=== PATIENT | female | born 1965 | race Hispanic/Latino ===

== ENCOUNTER 2016-10-16 14:53 | Emergency (ER) | payer MEDICAID, OTHER ==
[2016-10-16 14:54] VITALS: BMI 34.3
[2016-10-16 14:59] VITALS: BP 162/100; PULSE 92; RESP 20; TEMP 98.1; O2SAT 96
[2016-10-16] MEDS ORDERED: Albuterol-Ipratrop 3 mg / 0.5 (3 ml) UD IH STA (15:13)
[2016-10-16] MEDS ORDERED: Albuterol-Ipratrop 3 mg / 0.5 (3 ml) UD ONE (15:18)
--- NOTE | 2016-10-16 15:35 | RAD ---
HISTORY: Shortness of breath COMPARISON: 05/05/2016 TECHNIQUE: Chest PA and lateral FINDINGS: LUNGS: The lungs are well inflated and clear. There is a linear scarring in the left lower lobe. PLEURA: No significant pleural effusion identified. No pneumothorax apparent. CARDIOVASCULAR: The heart is normal in size. OSSEOUS STRUCTURES: No significant abnormalities. VISUALIZED UPPER ABDOMEN: Normal. OTHER FINDINGS: None. IMPRESSION: No active pulmonary disease.
--- NOTE | 2016-10-16 15:39 | C.PDOC ---
History Of Present Illness 51 year old female presents to the ED with complaints of cough and congestion for two weeks. Patient states she feels the need to release sputum from her throat but is unable to. She denies taking any medication, chest pain, shortness of breath or fever. Time Seen by Provider: 10/16/16 15:09 Chief Complaint (Nursing): Cough, Cold, Congestion History Per: Patient History/Exam Limitations: no limitations Onset/Duration Of Symptoms: Persistent (2 weeks ) Sick Contacts (Context): None Associated Symptoms: Cough. denies: Fever, Chills, Vomiting, Diarrhea Recent travel outside of the [place]: No Past Medical History Reviewed: Historical Data, Nursing Documentation, Vital Signs Vital Signs: Last Vital Signs Temp 98.1 F 10/16/16 14:56 Pulse 92 H 10/16/16 14:56 Resp 20 10/16/16 15:43 BP 162/100 H 10/16/16 14:56 Pulse Ox 96 10/16/16 17:00 - Medical History PMH: Anxiety, Gastritis, Gall Bladder Disease, HTN, Hypercholesterolemia, Hyperlipidemia, Hypothyroidism, Malignancy (ovarian) Surgical History: Cholecystectomy, Endoscopy (ESOPHAGEAL DILATION) - [facility] Procedures COLONOSCOPY (11/25/13) ESOPHAGEAL DILATION (06/04/14) ESOPHAGOGASTRODUODENOSCOPY [EGD] W/CLOSED BIOPSY (06/04/14) Family History: States: Unknown Family Hx, Diabetes - Social History Hx Tobacco Use: No Hx Alcohol Use: No Hx Substance Use: No - Immunization History Hx Tetanus Toxoid Vaccination: No Hx Influenza Vaccination: No Hx Pneumococcal Vaccination: No Review Of Systems Constitutional: Negative for: Fever, Chills, Sweats Cardiovascular: Negative for: Chest Pain, Palpitations Respiratory: Positive for: Cough, Other (congestion ). Negative for: Shortness of Breath Gastrointestinal: Negative for: Nausea, Vomiting, Abdominal Pain, Diarrhea Neurological: Negative for: Headache Physical Exam - Physical Exam Appears: Non-toxic, No Acute Distress Skin: Warm, Dry Head: Atraumatic Ear(s): Bilateral: Normal Nose: Normal, No Discharge Oral Mucosa: Moist Throat: Normal, No Erythema, No Exudate Neck: Supple Chest: Symmetrical, No Deformity Cardiovascular: Rhythm Regular Respiratory: No Rales, Rhonchi (scattered rhonci bilaterally ) Extremity: Normal ROM, No Tenderness Neurological/Psych: Oriented x3 ED Course And Treatment O2 Sat by Pulse Oximetry: 96 (room air ) Medical Decision Making Medical Decision Making: Impression: cough and congestion Plan: * Duoneb * CXR Progress: CXR show no acute disease. Zithromax PO was ordered Patient remained afebrile alert and oriented with stable vital signs during ER evaluation. Discussed results with patient, and copy of report was provided. On re- examination, patient is resting comfortably in no acute respiratory distress. Patient reports improvement of symptoms. Lungs clear bilaterally with good air exchange. Patient feels comfortable going home and will be discharged. Patient given follow up instructions. Instructed to return to ER if symptoms worsen or new symptoms arise. Disposition Counseled Patient/Family Regarding: Need For Followup, Rx Given - Disposition Referrals: Israel Arvizu MD [Medical Doctor] - Disposition: HOME/ ROUTINE Disposition Time: 15:38 Condition: STABLE Additional Instructions: Follow up with your primary medical doctor or clinic in 2-5 days for further evaluation. Take medications as prescribed. Return to the emergency department at any time if symptoms persist or worsen. Prescriptions: Albuterol HFA [Ventolin HFA 90 mcg/actuation (8 g)] 1 puff IH Q4 #1 puff Azithromycin [Zithromax] 250 mg PO DAILY #4 tab Promethazine DM [Phenergan DM Syrup] 5 ml PO Q8 PRN #3 oz PRN Reason: Cough Instructions: Upper Respiratory Infection (ED) - POA Present On Arrival: None - Clinical Impression Clinical Impression: Upper respiratory infection - Scribe Statement The provider has reviewed the documentation as recorded by the Ingaibthalia Koroma All medical record entries made by the Ingaibthalia were at my direction and personally dictated by me. I have reviewed the chart and agree that the record accurately reflects my personal performance of the history, physical exam, medical decision making, and the department course for this patient. I have also personally directed, reviewed, and agree with the discharge instructions and disposition.
== END 2016-10-16 15:43 | disposition home or self-care (01) ==
LOC: C.ER 14:53
DX: J06.9 Acute upper respiratory infection, unspecified (principal)

== ENCOUNTER 2016-11-06 06:25 | Emergency (ER) | payer MEDICAID ==
[2016-11-06 06:25] VITALS: BMI 34.3
[2016-11-06 06:50] LABS: HCG,QUALITATIVE URINE NEGATIVE (NEGATIVE)
[2016-11-06 06:56] LABS: SQUAMOUS EPITHIAL 2 /hpf (0-5); URINE BILIRUBIN NEGATIVE (NEGATIVE); URINE BLOOD NEGATIVE (NEGATIVE); URINE CLARITY Clear (Clear); URINE COLOR Yellow (YELLOW); URINE GLUCOSE (UA) NORMAL (Normal); URINE LEUKOCYTE ESTERASE NEG Leu/uL (Negative); URINE NITRATE NEGATIVE (NEGATIVE); URINE PROTEIN NEGATIVE (NEGATIVE); URINE UROBILINOGEN NORMAL mg/dL (0.2-1.0)
[2016-11-06 08:02] LABS: BASO # 0.1 K/uL (0.0-0.2); BASO % 1.1 % (0.0-2.0); EOS # 0.2 K/uL (0.0-0.7); EOS % 2.6 % (0.0-4.0); HEMOGLOBIN 11.4 g/dL (11.0-16.0); LYMPH # 2.2 K/uL (1.0-4.3); LYMPH % 28.3 % (20.0-40.0); MEAN CELL VOLUME 82.3 fL (81.0-99.0); MEAN CORPUSCULAR HEMOGLOBIN 26.8 pg (27.0-31.0); MEAN CORPUSCULAR HGB CONC 32.5 g/dL (33.0-37.0); MEAN PLATELET VOLUME 8.2 fL (7.2-11.7); MONO # 0.8 K/uL (0.0-0.8); MONO % 9.8 % (0.0-10.0); NEUT # 4.5 K/uL (1.8-7.0); NEUT % 58.2 % (50.0-75.0); NRBC % 0.1 % (0.0-2.0); RBC 4.24 Mil/uL (3.80-5.20); RED CELL DISTRIBUTION WIDTH 13.8 % (11.5-14.5); WHITE BLOOD COUNT 7.7 K/uL (4.8-10.8)
--- NOTE | 2016-11-06 08:05 | C.PDOC ---
History Of Present Illness 51 y/o female with PMHx of ovarian cancer s/p hysterectomy at age 23, achalasia , and thyroid disease, presents to the ED for evaluation of shortness of breath for the last 2 days. Pt reports being seen here in the ER 2 weeks ago for cough and congestion, CXR done at that time, and was sent home with prescriptions of Azithromycin, and cough medication. Patient states that her symptoms have not improved, her cough still persists. Pt also complains of left mid to lower back pain. She denies fever, chest pain, abdominal pain, sensory changes, palpitations. Time Seen by Provider: 11/06/16 07:13 Chief Complaint (Nursing): Shortness Of Breath History Per: Patient History/Exam Limitations: no limitations Onset/Duration Of Symptoms: Days (2) Current Symptoms Are (Timing): Still Present Exacerbating Factor(s): Coughing Associated Symptoms: denies: Fever, Chills, Sweating, Chest Pain, Bloody Cough, Heart Racing, Leg/Calf Pain, Ankle/Leg Swelling, Dizziness, Light-headedness, Anxiety, Tingling In Hands Or Face, Musle Spasms In Hands Or Feet Reports Recently: Seen In ED Additional History Per: Patient Past Medical History Reviewed: Historical Data, Nursing Documentation, Vital Signs Vital Signs: Last Vital Signs Temp 98.2 F 11/06/16 09:08 Pulse 75 11/06/16 09:08 Resp 16 11/06/16 09:08 BP 150/90 11/06/16 09:08 Pulse Ox 100 11/06/16 09:08 - Medical History PMH: Anxiety, Gastritis, Gall Bladder Disease, HTN, Hypercholesterolemia, Hyperlipidemia, Hypothyroidism, Malignancy (ovarian) Surgical History: Cholecystectomy, Endoscopy (ESOPHAGEAL DILATION) - [facility] Procedures COLONOSCOPY (11/25/13) ESOPHAGEAL DILATION (06/04/14) ESOPHAGOGASTRODUODENOSCOPY [EGD] W/CLOSED BIOPSY (06/04/14) Family History: States: Diabetes - Social History Hx Tobacco Use: No Hx Alcohol Use: No Hx Substance Use: No - Immunization History Hx Tetanus Toxoid Vaccination: No Hx Influenza Vaccination: No Hx Pneumococcal Vaccination: No Review Of Systems Except As Marked, All Systems Reviewed And Found Negative. Constitutional: Negative for: Fever, Chills Cardiovascular: Negative for: Chest Pain, Palpitations, Edema, Light Headedness Respiratory: Positive for: Cough, Shortness of Breath. Negative for: Hemoptysis , Sputum Gastrointestinal: Negative for: Nausea, Vomiting, Abdominal Pain, Diarrhea Musculoskeletal: Positive for: Back Pain Skin: Negative for: Rash Neurological: Negative for: Weakness, Numbness Physical Exam - Physical Exam Appears: Well, Non-toxic, No Acute Distress Skin: Normal Color, Warm, Dry Head: Normacephalic Eye(s): bilateral: Normal Inspection Oral Mucosa: Moist Neck: Supple Cardiovascular: Rhythm Regular, No Murmur Respiratory: Normal Breath Sounds, No Accessory Muscle Use, No Rales, No Rhonchi , No Wheezing, Other (Speaking in full sentences) Gastrointestinal/Abdominal: Normal Exam, Bowel Sounds, Soft, No Tenderness Extremity: Normal ROM Neurological/Psych: Oriented x3 ED Course And Treatment - Laboratory Results Result Diagrams: 11/06/16 07:54 11/06/16 07:54 ECG: Interpreted By Me, Viewed By Me (NSR 60 bpm, normal axis, no acute ST/T wave changes) ECG Interpretation: Normal O2 Sat by Pulse Oximetry: 99 (on RA) Pulse Ox Interpretation: Normal Progress Note: Blood work, UA, LS spine x-ray, CXR, EKG ordered and reviewed. Reevaluation Time: 09:00 Reassessment Condition: Improved (Patient reassessed, is currently resting comfortably and states she feels well. Blood work (including d-dimer), UA unremarkable. Xray shows Left sided atelectasis vs infiltate. Patient is well appearing, without fever, and has nonproductive cough. Suspect atelectasis is more likely than infiltrate. Patient instructed to follow up with pulmonology within 1 week, and she understands she should return to ED if her symptoms worsen.) Disposition Counseled Patient/Family Regarding: Studies Performed, Diagnosis, Need For Followup, Rx Given - Disposition Referrals: Israel Arvizu MD [Medical Doctor] - Abena Petit MD [Staff Provider] - Disposition: HOME/ ROUTINE Disposition Time: 09:00 Condition: STABLE Additional Instructions: FOLLOW UP WITH YOUR DOCTOR IN 1-2 DAYS, AND WITH PULMONOLOGY WITHIN 1 WEEK USE MEDICATIONS NEEDED FOR BACK PAIN RETURN TO ER IF SYMPTOMS WORSEN Prescriptions: Cyclobenzaprine [Cyclobenzaprine HCl] 10 mg PO BID PRN #12 tab PRN Reason: pain/muscle Naproxen [Naprosyn Tab] 375 mg PO BID PRN #15 tab PRN Reason: pain Instructions: Dyspnea (ED), Muscle Spasm (ED) Print Language: TELUGU - POA Present On Arrival: None - Clinical Impression Clinical Impression: Shortness of breath, Low back pain - Scribe Statement The provider has reviewed the documentation as recorded by the Ingaibthalia Skinner All medical record entries made by the Ingaibthalia were at my direction and personally dictated by me. I have reviewed the chart and agree that the record accurately reflects my personal performance of the history, physical exam, medical decision making, and the department course for this patient. I have also personally directed, reviewed, and agree with the discharge instructions and disposition.
[2016-11-06 08:10] LABS: ALBUMIN 4.1 g/dL (3.5-5.0)
[2016-11-06 08:12] LABS: GFR AFRICAN-AMERICAN > 60; GFR NON-AFRICAN AMERICAN > 60
[2016-11-06 08:13] LABS: ALB/GLOB RATIO 1.2 (1.0-2.1); ALT/SGPT 24 U/L (9-52); AST/SGOT 24 U/L (14-36); BLOOD UREA NITROGEN 24 mg/dL (7-17); CALCIUM 9.6 mg/dl (8.6-10.4)
--- NOTE | 2016-11-06 08:25 | RAD ---
HISTORY: Shortness of breath COMPARISON: 10/06/2016 TECHNIQUE: Chest PA and lateral FINDINGS: LUNGS: Patchy increased markings at the left lung base which may represent mild atelectasis and or subtle infiltrate. Clinical correlation. Mild venous congestion. Diffuse increased interstitial lung markings. PLEURA: No significant pleural effusion identified. No pneumothorax apparent. CARDIOVASCULAR: Normal. OSSEOUS STRUCTURES: No significant abnormalities. VISUALIZED UPPER ABDOMEN: Colonic interposition at the level of the left upper abdomen. OTHER FINDINGS: None. IMPRESSION: Patchy increased markings at the left lung base which may represent mild atelectasis and or subtle infiltrate. Clinical correlation. Mild venous congestion. Diffuse increased interstitial lung markings.
[2016-11-06 09:09] VITALS: BP 150/90; PULSE 75; RESP 16; TEMP 98.2
--- NOTE | 2016-11-06 10:54 | RAD ---
Lumbar spine three views History: Low back pain. Comparison: None available. Findings: Study limited by overlying bowel gas. Severe fecal retention in the colon. Surgical clips in the right upper abdomen. On the lateral view, there is a rounded radiopaque density adjacent to the surgical clips which may represent stool versus small calculus. Clinical correlation. Calcified phleboliths in the pelvis. A bifid L5 vertebral body. Inferior endplate concavities of the L2, L3, L4, and L5 vertebral bodies. Superior endplate concavities of the L5 and S1 vertebral bodies. Mild multilevel anterior osteophyte formation in the lower thoracic and upper lumbar spine. Lower level facet hypertrophy and sclerosis. No evidence for acute displaced fracture or dislocation. Impression: Degenerative changes. If pain persists, consider MRI.
--- NOTE | 2016-11-09 11:52 | CARD ---
APPROVED REPORT EKG Measurement Heart [id number] <Conclusion> Normal sinus rhythm with sinus arrhythmia Normal ECG
[2016-11-15 12:38] VITALS: O2SAT 99
== END 2016-11-06 09:08 | disposition home or self-care (01) ==
LOC: C.ER 06:25
DX: R06.02 Shortness of breath (principal); M54.5 Low back pain

== ENCOUNTER 2017-03-15 06:28 | Day surgery (SDC) | payer MEDICAID ==
[2017-03-15 07:08] VITALS: BMI 35.0
[2017-03-15] MEDS ORDERED: Midazolam 2 MG/2 ML VIAL ONE (08:07)
[2017-03-15] MEDS ORDERED: Propofol 10 mg/ml Inj (20 ML) ONE ×2 (08:07→08:24)
[2017-03-15] MEDS ORDERED: Lactated Ringer's 1,000 ML IV ONE (08:15)
[2017-03-15] MEDS ORDERED: Lactated Ringer's 500 ML IV SCH (08:30)
--- NOTE | 2017-03-15 08:41 | CP.SDSHP ---
Same Day Surgery H & P - History Proposed Procedure: EGD with balloon dilatation Pre-Op Diagnosis: Esophageal stricture/dysphagia - Previous Medical/Surgical History Cardiac: Hypertension Endocrine/Metabolic: Thyroid Disease Comments: HYPERLIPIDEMIA. Achalasia/ postop stricture Previous Surgical History: ROXANA/BSO. Thoracotomy with esophageal myotomy 2000 - Allergies Allergies: Allergies ORANGE Allergy (Intermediate, Verified 03/15/17 07:06) RASH pear Allergy (Intermediate, Verified 03/15/17 07:06) RASH strawberry Allergy (Intermediate, Verified 03/15/17 07:06) RASH APPLE Allergy (Severe, Uncoded 03/15/17 07:06) SWELLING - Current Medications Current Medications: Reviewed, per reconciliation - Physical Exam General Appearance: wdwn nad Vital Signs: Vital Signs 03/15/17 03/15/17 06:45 07:34 Temperature 97 F L Pulse Rate 80 80 Respiratory 20 Rate Blood Pressure 135/79 O2 Sat by Pulse 97 Oximetry Mental Status: Alert & Oriented x3 Heart: WNL Lungs: WNL GI: WNL - {Optional Preform as Required} Abdomen: WNL - Impression Impression: dysphagia, known esophageal stricture Pt. Evaluated Today:Candidate for Anesthesia & Procedure: Yes - Date & Time Date: 03/15/17 Time: 08:15 (Original H&P done 815 but missing, repeat H&P done now) Short Stay Discharge - Short Stay Discharge Admitting Diagnosis/Reason for Visit: DYSPHAGIA Disposition: HOME/ ROUTINE
[2017-03-15 10:03] VITALS: BP 131/82; PULSE 76; RESP 23; TEMP 97.3; O2SAT 100
== END 2017-03-15 09:50 | disposition home or self-care (01) ==
LOC: C.SDS 06:28
PROVIDERS: ATTEND Internal Medicine Gastroenterology
DX: K22.0 Achalasia of cardia (principal); K22.2 Esophageal obstruction
CPT/HCPCS: 43235; C1726; J7120

== ENCOUNTER 2017-05-31 14:32 | Emergency (ER) | payer MEDICAID ==
[2017-05-31 14:53] VITALS: BMI 33.5
[2017-05-31 14:55] VITALS: BP 143/86; PULSE 69; RESP 20; TEMP 98.5; O2SAT 98
--- NOTE | 2017-05-31 15:10 | C.PDOC ---
History Of Present Illness 52 y/o female presents to the ER complaining of feeling a lump in her throat for the past 2 weeks. She states she feels it intermittently when swallowing. She has history of ovarian cancer and achalasia. She states she had surgery for esophageal stricture years ago. She states she has appointment coming up with Dr Mitchell. She states she had seen PCP last week, who ordered labwork, but has yet to receive her results. She denies any painful swallowing or difficulty swallowing. She admits to some weight loss in the past month, but also has been eating less and stressed with work. She Denies any fever, vomiting, reflux, chest pain, SOB, abdominal pain. PCP: Dr Ranjeet Arvizu GI: Dr Kelsey Canales Time Seen by Provider: 05/31/17 14:57 Chief Complaint (Nursing): ENT Problem History Per: Patient History/Exam Limitations: no limitations Onset/Duration Of Symptoms: Days Severity: Moderate Past Medical History Reviewed: Historical Data, Nursing Documentation, Vital Signs Vital Signs: Last Vital Signs Temp 98.5 F 05/31/17 14:53 Pulse 69 05/31/17 14:53 Resp 20 05/31/17 14:53 BP 143/86 05/31/17 14:53 Pulse Ox 98 05/31/17 17:18 - Medical History PMH: Anxiety, Gastritis, Gall Bladder Disease, HTN, Hypercholesterolemia, Hyperlipidemia, Hypothyroidism, Malignancy (ovarian) Other PMH: achalasia Surgical History: Cholecystectomy, Endoscopy (ESOPHAGEAL DILATION) - [facility] Procedures COLONOSCOPY (11/25/13) ESOPHAGEAL DILATION (06/04/14) ESOPHAGOGASTRODUODENOSCOPY [EGD] W/CLOSED BIOPSY (06/04/14) Family History: States: Diabetes - Social History Hx Tobacco Use: No Hx Alcohol Use: No Hx Substance Use: No - Immunization History Hx Tetanus Toxoid Vaccination: No Hx Influenza Vaccination: No Hx Pneumococcal Vaccination: No Review Of Systems Constitutional: Negative for: Fever, Chills Eyes: Negative for: Vision Change ENT: Positive for: Throat Pain Cardiovascular: Negative for: Chest Pain Respiratory: Negative for: Shortness of Breath Gastrointestinal: Negative for: Vomiting, Abdominal Pain, Diarrhea Genitourinary: Negative for: Dysuria Musculoskeletal: Negative for: Neck Pain Neurological: Negative for: Headache Physical Exam - Physical Exam Appears: Well, Non-toxic, No Acute Distress Skin: Normal Color, Warm Head: Atraumatic, Normacephalic Eye(s): bilateral: Normal Inspection, PERRL, EOMI Ear(s): Bilateral: Normal (no erythema) Nose: Normal Oral Mucosa: Moist Tongue: No Normal Appearing Lips: Normal Appearing, No Swelling Teeth: Normal Dentition, No Caries Gingiva: Normal Appearing, No Erythema, No Ulceration Throat: Normal, No Erythema, No Exudate Neck: Normal ROM, No Midline Cervical Tenderness, No Paracervical Tenderness, Other (normal thyroid, no swelling, no tenderness, no nodules) Lymphatic: Normal Exam, No Adenopathy Chest: Symmetrical Cardiovascular: Rhythm Regular Respiratory: Normal Breath Sounds, No Accessory Muscle Use, No Rales, No Rhonchi , No Wheezing Gastrointestinal/Abdominal: Normal Exam, Soft, No Tenderness Extremity: Bilateral: Atraumatic, Normal ROM Neurological/Psych: Oriented x3, Normal Speech Gait: Steady ED Course And Treatment O2 Sat by Pulse Oximetry: 98 (RA) Pulse Ox Interpretation: Normal Medical Decision Making Medical Decision Making: Patient with complaints of feeling lump when swallowing. Her exam was unremarkable. Xray ordered showing fecal retention otherwise normal gas pattern no esophageal foreign body or other abnormality. Patient remained well and in no acute distress. I advised patient to follow up with her PCP and GI for further evaluation may need barium swallow or endoscopy to be performed outpatient. Disposition Counseled Patient/Family Regarding: Diagnosis, Need For Followup - Disposition Referrals: Israel Arvizu MD [Medical Doctor] - Waldo Mitchell MD [Staff Provider] - Disposition: HOME/ ROUTINE Disposition Time: 15:49 Condition: STABLE Additional Instructions: Your xray was normal. Please follow up with your primary doctor and GI Dr Mitchell for further evaluation and get lab results. You can take any analgesic as needed. Return to the emergency department at any time if symptoms persist or worsen, including difficulty swallowing, vomiting or other concern. Instructions: Dysphagia (ED) Forms: [facility] (Bengali) - POA Present On Arrival: None - Clinical Impression Clinical Impression: Dysphagia - PA / JOB COACHING / Resident Statement MD/DO has reviewed & agrees with the documentation as recorded. - Scribe Statement The provider has reviewed the documentation as recorded by the Omare Esmer Hoffman Provider Attestation All medical record entries made by the Scribe were at my direction and personally dictated by me. I have reviewed the chart and agree that the record accurately reflects my personal performance of the history, physical exam, medical decision making, and the department course for this patient. I have also personally directed, reviewed, and agree with the discharge instructions and disposition.
--- NOTE | 2017-05-31 16:45 | RAD ---
PROCEDURE: Radiographs of the chest and abdomen (obstructive series) HISTORY: complains of pain, and sensation of lump x 2 weeks COMPARISON: Chest radiograph dated 11/06/2016 ; CT scan the abdomen pelvis dated 10/07/2015. TECHNIQUE: AP radiograph of the chest, with upright and supine radiographs of the abdomen. FINDINGS: CHEST: Lungs: Left mid/lower lung linear scarring. Clear. Cardiovascular: Atherosclerotic aortic calcifications. Normal size heart. No pulmonary vascular congestion. Pleura: No pleural fluid. No pneumothorax. Other findings: None. ABDOMEN AND PELVIS: Bowel: Prominent amount of retained colonic stool. Unremarkable bowel gas pattern. No evidence of mechanical obstruction. Free air: None. Bones: Unremarkable. Other findings: Right upper quadrant surgical clips. IMPRESSION: Unremarkable radiographs of chest and abdomen. Prominent amount of retained colonic stool. No evidence of mechanical bowel obstruction.
== END 2017-05-31 15:59 | disposition home or self-care (01) ==
LOC: C.ER 14:32
DX: R13.10 Dysphagia, unspecified (principal); E03.9 Hypothyroidism, unspecified; E78.00 Pure hypercholesterolemia, unspecified; I10 Essential (primary) hypertension; Z85.43 Personal history of malignant neoplasm of ovary

== ENCOUNTER 2017-06-21 07:10 | Day surgery (SDC) | payer MEDICAID ==
[2017-06-21] MEDS ORDERED: Propofol 10 mg/ml Inj (20 ML) ONE (10:15)
--- NOTE | 2017-06-21 10:19 | CP.SDSHP ---
Same Day Surgery H & P - History Proposed Procedure: Colonoscopy Pre-Op Diagnosis: Screening exam - Previous Medical/Surgical History Cardiac: Hypertension Endocrine/Metabolic: Thyroid Disease Misc: Other (Ovarian cancer. Hyperlipidemia. Esophageal stricture. Achalasia) Previous Surgical History: ROXANA/BSO. Heller Myotomy - Allergies Allergies: Allergies ORANGE Allergy (Intermediate, Verified 06/21/17 07:58) RASH pear Allergy (Intermediate, Verified 06/21/17 07:58) RASH strawberry Allergy (Intermediate, Verified 06/21/17 07:58) RASH APPLE Allergy (Severe, Uncoded 06/21/17 07:58) SWELLING fruit Allergy (Severe, Uncoded 06/21/17 07:58) SWELLING - Current Medications Current Medications: reviewed, per RN reconciliation - Physical Exam General Appearance: wdwn nad Vital Signs: Vital Signs 06/21/17 07:45 Temperature 97.8 F Pulse Rate 67 Respiratory 19 Rate Blood Pressure 147/90 O2 Sat by Pulse 97 Oximetry Mental Status: Alert & Oriented x3 Heart: WNL Lungs: WNL GI: WNL - {Optional Preform as Required} Abdomen: WNL - Impression Impression: screening colonoscopy Pt. Evaluated Today:Candidate for Anesthesia & Procedure: Yes - Date & Time Date: 06/21/17 Time: 10:19 Short Stay Discharge - Short Stay Discharge Admitting Diagnosis/Reason for Visit: SCREENING Disposition: HOME/ ROUTINE
[2017-06-21] MEDS ORDERED: Lactated Ringer's 1,000 ML IV ONE (10:20)
[2017-06-21] MEDS ORDERED: Lactated Ringer's 500 ML IV SCH (10:30)
[2017-06-21 11:07] VITALS: TEMP 97; O2SAT 100
[2017-06-21 12:22] VITALS: BP 118/85; PULSE 52; RESP 13
== END 2017-06-21 11:45 | disposition home or self-care (01) ==
LOC: C.ENDO 07:10
PROVIDERS: ATTEND Internal Medicine Gastroenterology
DX: Z12.11 Encounter for screening for malignant neoplasm of colon (principal); I10 Essential (primary) hypertension; E78.5 Hyperlipidemia, unspecified; K22.0 Achalasia of cardia; Z85.43 Personal history of malignant neoplasm of ovary
CPT/HCPCS: 45378; J2704; J7120

== ENCOUNTER 2017-06-28 13:34 | Emergency (ER) | payer MEDICAID ==
[2017-06-28 13:34] VITALS: BMI 33.5
[2017-06-28 14:33] VITALS: O2SAT 98
[2017-06-28] MEDS ORDERED: Sodium Chloride 0.9% 1,000 ML IV ONE (14:51)
[2017-06-28 15:11] LABS: BASO # 0.1 K/uL (0.0-0.2); EOS # 0.1 K/uL (0.0-0.7); EOS % 1.3 % (0.0-4.0); HEMOGLOBIN 12.2 g/dL (11.0-16.0); LYMPH # 1.3 K/uL (1.0-4.3); LYMPH % 20.8 % (20.0-40.0); MEAN CORPUSCULAR HGB CONC 34.3 g/dL (33.0-37.0); MEAN PLATELET VOLUME 8.2 fL (7.2-11.7); MONO # 0.5 K/uL (0.0-0.8); MONO % 8.2 % (0.0-10.0); NEUT # 4.4 K/uL (1.8-7.0); NEUT % 68.7 % (50.0-75.0); NRBC % 0.2 % (0.0-2.0); RBC 4.2 Mil/uL (3.80-5.20); RED CELL DISTRIBUTION WIDTH 13.9 % (11.5-14.5); WHITE BLOOD COUNT 6.5 K/uL (4.8-10.8)
[2017-06-28 15:13] LABS: MEAN CELL VOLUME 84.6 fL (81.0-99.0)
--- NOTE | 2017-06-28 15:15 | C.PDOC ---
History Of Present Illness 52 y/o female,with history of hypothyroidism and achalasia, presents to the ER complaining of swelling in her neck. Patient states that there is "lump in her throat." Patient reports that she has been seen by . She had an endoscopy in March 2017 which was normal. Patient states that she has difficulty swallowing sometimes. She takes warm fluids which makes it easier for her to swallow. Patient is taking Levothyroxine for her thyroid issues. Time Seen by Provider: 06/28/17 14:40 Chief Complaint (Nursing): ENT Problem History Per: Patient History/Exam Limitations: no limitations Onset/Duration Of Symptoms: Hrs Current Symptoms Are (Timing): Still Present Severity: Moderate Past Medical History Reviewed: Historical Data, Nursing Documentation, Vital Signs Vital Signs: Last Vital Signs Temp 98.7 F 06/28/17 16:39 Pulse 69 06/28/17 16:39 Resp 18 06/28/17 16:39 BP 127/89 06/28/17 16:39 Pulse Ox 98 06/28/17 16:39 - Medical History PMH: Anxiety, Gastritis, Gall Bladder Disease, HTN, Hypercholesterolemia, Hyperlipidemia, Hypothyroidism, Kidney Stones (NOT PASSED, NEEDS FURTHER EVAL), Malignancy (ovarian), Chronic Kidney Disease Denies: Colonic Polyps, Fractures, Sleep Apnea Surgical History: [facility] (11/25/13) ESOPHAGEAL DILATION (06/04/14) ESOPHAGOGASTRODUODENOSCOPY [EGD] W/CLOSED BIOPSY (06/04/14) Family History: States: Diabetes - Social History Hx Tobacco Use: No Hx Alcohol Use: No Hx Substance Use: No - Immunization History Hx Tetanus Toxoid Vaccination: No Hx Influenza Vaccination: No Hx Pneumococcal Vaccination: No Review Of Systems Except As Marked, All Systems Reviewed And Found Negative. Constitutional: Negative for: Fever, Chills Skin: Positive for: Other (swelling in neck) Physical Exam - Physical Exam Appears: Non-toxic, No Acute Distress Skin: Normal Color, Warm Head: Atraumatic, Normacephalic Eye(s): bilateral: Normal Inspection Nose: Normal Oral Mucosa: Moist Throat: Normal, No Erythema, No Exudate Neck: Supple Chest: Symmetrical Cardiovascular: Rhythm Regular Respiratory: Normal Breath Sounds, No Accessory Muscle Use, No Rales, No Rhonchi , No Wheezing Neurological/Psych: Oriented x3, Normal Speech, Normal Motor, Normal Sensation ED Course And Treatment - Laboratory Results Result Diagrams: 06/28/17 15:02 06/28/17 15:02 Lab Interpretation: No Acute Changes ECG: Interpreted By Me ECG Rhythm: Sinus Rhythm ECG Interpretation: No Acute Changes Rate From EC O2 Sat by Pulse Oximetry: 98 (RA) Pulse Ox Interpretation: Normal - Radiology CXR: Interpreted by Me CXR Interpretation: Yes: No Acute Disease Progress Note: Treated with IVF NSS. On re-evaluation lungs clear in no distress. Discharged in stable condition advised to follow up with PMD for further evaluation Reassessment Condition: Improved Medical Decision Making Medical Decision Making: Plan: --Labs --UA --CXR --IV Fluids Disposition Counseled Patient/Family Regarding: Studies Performed, Diagnosis, Need For Followup - Disposition Referrals: Waldo Mitchell MD [Staff Provider] - Disposition: HOME/ ROUTINE Disposition Time: 16:15 Condition: STABLE Additional Instructions: Follow up with PMD for further evaluation Instructions: Generalized Neck Pain (DC) Forms: [employer]. (Nigerian) - POA Present On Arrival: None - Clinical Impression Clinical Impression: Achalasia of digestive tract, Neck swelling - PA / [employer] / Resident Statement MD/DO has reviewed & agrees with the documentation as recorded. - Scribe Statement The provider has reviewed the documentation as recorded by the Ingaibe Esmer Hoffman Provider Attestation All medical record entries made by the Scribe were at my direction and personally dictated by me. I have reviewed the chart and agree that the record accurately reflects my personal performance of the history, physical exam, medical decision making, and the department course for this patient. I have also personally directed, reviewed, and agree with the discharge instructions and disposition.
[2017-06-28 15:24] LABS: ALB/GLOB RATIO 1.1 (1.0-2.1); ALBUMIN 4.4 g/dL (3.5-5.0); ALT/SGPT 48 U/L (9-52); AST/SGOT 28 U/L (14-36); BLOOD UREA NITROGEN 21 mg/dL (7-17); CALCIUM 10.1 mg/dl (8.6-10.4); GFR AFRICAN-AMERICAN > 60; GFR NON-AFRICAN AMERICAN > 60
--- NOTE | 2017-06-28 15:33 | RAD ---
HISTORY: SOB COMPARISON: Chest x-ray performed 11/06/16, obstructive series performed 05/31/17 TECHNIQUE: Chest PA and lateral FINDINGS: LUNGS: Linear atelectasis, left lower lobe. No focal consolidation. Please note that chest x-ray has limited sensitivity for the detection of pulmonary masses. PLEURA: No significant pleural effusion identified. No definite pneumothorax . CARDIOVASCULAR: Heart size appears within normal limits. OSSEOUS STRUCTURES: Degenerative changes of the spine. VISUALIZED UPPER ABDOMEN: Unremarkable. OTHER FINDINGS: None. IMPRESSION: Linear atelectasis, left lower lobe.
[2017-06-28 16:15] LABS: SQUAMOUS EPITHIAL 1 /hpf (0-5); URINE BACTERIA OCC (<OCC); URINE BILIRUBIN NEGATIVE (NEGATIVE); URINE BLOOD NEGATIVE (NEGATIVE); URINE CLARITY Clear (Clear); URINE COLOR Straw (YELLOW); URINE GLUCOSE (UA) NORMAL (Normal); URINE LEUKOCYTE ESTERASE TRACE Leu/uL (Negative); URINE NITRATE NEGATIVE (NEGATIVE); URINE PROTEIN NEGATIVE (NEGATIVE); URINE UROBILINOGEN NORMAL mg/dL (0.2-1.0)
[2017-06-28 16:40] VITALS: BP 127/89; PULSE 69; RESP 18; TEMP 98.7
--- NOTE | 2017-06-29 18:55 | CARD ---
APPROVED REPORT EKG Measurement Heart [id number] <Conclusion> Normal sinus rhythm Normal ECG
== END 2017-06-28 17:46 | disposition home or self-care (01) ==
LOC: C.ER 13:34
DX: K22.0 Achalasia of cardia (principal); R22.1 Localized swelling, mass and lump, neck
CPT/HCPCS: 71046; 80053; 81001; 84443; 84484; 85025; 93005; 96360; 99283; J7040

== ENCOUNTER 2017-10-13 09:53 | Emergency (ER) | payer MEDICAID ==
[2017-10-13 09:57] VITALS: BMI 34.3
[2017-10-13 10:00] VITALS: PULSE 71; RESP 20
--- NOTE | 2017-10-13 11:32 | C.PDOC ---
History Of Present Illness 52 year old female, whose PMHx includes ovarian cancer and surgical history includes hysterectomy, presents to the ED for evaluation of abdominal pain which began yesterday. Patient states her pain is around her mid-abdominal region and has been worsening since onset. Patient also states her stomach looks more swollen than usual. Patient is scheduled for an appoinment with her PMD today at 1400. She denies radiation of pain, fever, chills, vomiting, diarrhea, blood in urine/stool. PMD: Dr. Ezequiel Arvizu Time Seen by Provider: 10/13/17 10:19 Chief Complaint (Nursing): Abdominal Pain History Per: Patient History/Exam Limitations: no limitations Onset/Duration Of Symptoms: Days Current Symptoms Are (Timing): Worse Location Of Pain/Discomfort: Other (mid-abdomen ) Radiation Of Pain To:: None Quality Of Discomfort: "Pain" Associated Symptoms: denies: Fever, Chills, Nausea, Vomiting, Diarrhea, Urinary Symptoms Additional History Per: Patient Abnormal Vaginal Bleeding: No Past Medical History Reviewed: Historical Data, Nursing Documentation, Vital Signs Vital Signs: Last Vital Signs Temp 99.1 F 10/13/17 09:58 Pulse 71 10/13/17 09:58 Resp 20 10/13/17 09:58 BP 144/99 H 10/13/17 09:58 Pulse Ox 98 10/13/17 11:55 - Medical History PMH: Anxiety, Gastritis, Gall Bladder Disease, HTN, Hypercholesterolemia, Hyperlipidemia, Hypothyroidism, Kidney Stones (NOT PASSED, NEEDS FURTHER EVAL), Malignancy (ovarian), Chronic Kidney Disease Denies: Colonic Polyps, Fractures, Sleep Apnea Surgical History: [facility] COL[facility] (11/25/13) ESOPHAGEAL DILATION (06/04/14) ESOPHAGOGASTRODUODENOSCOPY [EGD] W/CLOSED BIOPSY (06/04/14) Family History: States: Diabetes - Social History Hx Tobacco Use: No Hx Alcohol Use: No Hx Substance Use: No - Immunization History Hx Tetanus Toxoid Vaccination: No Hx Influenza Vaccination: No Hx Pneumococcal Vaccination: No Review Of Systems Constitutional: Negative for: Fever, Chills Gastrointestinal: Positive for: Abdominal Pain. Negative for: Vomiting, Hematochezia Genitourinary: Negative for: Hematuria Physical Exam - Physical Exam Appears: Non-toxic, No Acute Distress Skin: Normal Color, Warm, Dry Head: Atraumatic, Normacephalic Eye(s): bilateral: Normal Inspection Oral Mucosa: Moist Neck: Supple Chest: Symmetrical, No Deformity, No Tenderness Cardiovascular: Rhythm Regular, No Murmur Respiratory: Normal Breath Sounds, No Rales, No Rhonchi, No Wheezing Gastrointestinal/Abdominal: Soft, No Tenderness, No Guarding, No Rebound Extremity: Normal ROM, Capillary Refill (less than 2 seconds ) Neurological/Psych: Oriented x3, Normal Speech, Normal Cognition ED Course And Treatment - Laboratory Results Result Diagrams: 10/13/17 11:31 10/13/17 11:31 O2 Sat by Pulse Oximetry: 98 (on RA) Pulse Ox Interpretation: Normal Medical Decision Making Medical Decision Making: Progress: Bloodwork, urinalysis, CT A/P ordered and reviewed. Pepcid IVP, Toradol IVP and Zofran IVP administered. Disposition - Disposition Referrals: Israel Arvizu MD [Medical Doctor] - Disposition: HOME/ ROUTINE Disposition Time: 14:11 Condition: GOOD Additional Instructions: Follow up with the medical doctor within 1-2 days. Return if worsened. Prescriptions: Naproxen [Naprosyn] 500 mg PO BID #20 tab Polyethylene Glycol 3350 [Miralax] 17 gm PO DAILY PRN #100 ml PRN Reason: Constipation Instructions: Stomach Ache and Stomach Upset Forms: [facility] (Macanese) - Clinical Impression Clinical Impression: Abdominal pain - PA / P D DRIVER / Resident Statement MD/DO has reviewed & agrees with the documentation as recorded. - Scribe Statement The provider has reviewed the documentation as recorded by the Scribe (Dior Skinner) All medical record entries made by the Scribe were at my direction and personally dictated by me. I have reviewed the chart and agree that the record accurately reflects my personal performance of the history, physical exam, medical decision making, and the department course for this patient. I have also personally directed, reviewed, and agree with the discharge instructions and disposition.
[2017-10-13 11:36] LABS: SQUAMOUS EPITHIAL 2 /hpf (0-5); URINE BACTERIA RARE (<OCC); URINE BILIRUBIN NEGATIVE (NEGATIVE); URINE BLOOD 1+ (NEGATIVE); URINE CLARITY Clear (Clear); URINE COLOR Yellow (YELLOW); URINE GLUCOSE (UA) NORMAL (Normal); URINE LEUKOCYTE ESTERASE TRACE Leu/uL (Negative); URINE PROTEIN NEGATIVE (NEGATIVE); URINE UROBILINOGEN NORMAL mg/dL (0.2-1.0)
[2017-10-13 11:45] LABS: BASO % 0.4 % (0.0-2.0); EOS # 0.1 K/uL (0.0-0.7); EOS % 1.2 % (0.0-4.0); HEMOGLOBIN 12.2 g/dL (11.0-16.0); LYMPH # 1.2 K/uL (1.0-4.3); LYMPH % 22.2 % (20.0-40.0); MEAN CELL VOLUME 84.1 fL (81.0-99.0); MEAN CORPUSCULAR HEMOGLOBIN 27.8 pg (27.0-31.0); MEAN CORPUSCULAR HGB CONC 33.1 g/dL (33.0-37.0); MEAN PLATELET VOLUME 7.8 fL (7.2-11.7); MONO # 0.5 K/uL (0.0-0.8); NEUT # 3.7 K/uL (1.8-7.0); NEUT % 67.2 % (50.0-75.0); NRBC % 0.1 % (0.0-2.0); RBC 4.38 Mil/uL (3.80-5.20); RED CELL DISTRIBUTION WIDTH 13.9 % (11.5-14.5); WHITE BLOOD COUNT 5.5 K/uL (4.8-10.8)
[2017-10-13 11:57] LABS: ALB/GLOB RATIO 1.3 (1.0-2.1); ALBUMIN 4.7 g/dL (3.5-5.0); ALT/SGPT 35 U/L (9-52); AST/SGOT 30 U/L (14-36); BLOOD UREA NITROGEN 22 mg/dL (7-17); CALCIUM 9.7 mg/dl (8.6-10.4); GFR AFRICAN-AMERICAN > 60; GFR NON-AFRICAN AMERICAN > 60; LIPASE 143 U/L (23-300)
[2017-10-13] MEDS ORDERED: Iodixanol 320 MG/ML 100 ML BOTTLE IV ONE (13:13)
--- NOTE | 2017-10-13 14:02 | CT ---
PROCEDURE: CT Abdomen and Pelvis with contrast HISTORY: mid abd pain, hx hysterectomy and oophrectomy COMPARISON: 10/07/2015. TECHNIQUE: CT scan of the abdomen and pelvis was performed after administration of intravenous contrast. Oral contrast was not administered. Coronal and sagittal reformatted images were obtained. Contrast dose: 100 mL Visipaque Radiation dose: Total exam DLP = 785.84 mGy-cm. This CT exam was performed using one or more of the following dose reduction techniques: Automated exposure control, adjustment of the mA and/or kV according to patient size, and/or use of iterative reconstruction technique. FINDINGS: LOWER THORAX: There is a stable 6 mm subpleural nodule in the left lower lobe. There is multifocal linear atelectasis in the visualized lungs. There is persistent mild dilatation of the esophagus with presumable layering debris/ingested material. LIVER: The liver is normal in size and there is homogeneous enhancement. There is redemonstration of stable innumerable tiny subcentimeter hypodensities, too small to characterize by CT criteria. No gross lesion or ductal dilatation. GALLBLADDER AND BILE DUCTS: Surgically absent. PANCREAS: Normal in size with homogeneous enhancement. No gross lesion or ductal dilatation. SPLEEN: Normal in size and appearance. ADRENALS: No discrete nodule. KIDNEYS AND URETERS: Normal in size with homogeneous enhancement. There is interval increase in size of 3.7 cm simple cyst in the left interpolar region which previously measured 1.6 cm. No hydronephrosis. No solid mass. VASCULATURE: No aortic aneurysm. BOWEL: There is apparent moderate mural thickening of the gastric wall. The small bowel loops are normal in caliber. There is moderate amount of stool in the colon. No bowel dilatation or obstruction. APPENDIX: Normal appendix. PERITONEUM: No free fluid. No free air. LYMPH NODES: No enlarged lymph nodes. BLADDER: Grossly normal in appearance. REPRODUCTIVE: The uterus is surgically absent. BONES: No acute fracture. Within normal limits for the patient's age with OTHER FINDINGS: There is a small fat containing umbilical hernia. IMPRESSION: 1. No acute abdominal or pelvic abnormality. 2. Stable tiny innumerable presumable tiny cysts in the liver. 3. Apparent moderate mural thickening of the gastric wall is nonspecific and could be related to underdistention however nonspecific gastritis is also a consideration. Moderate dilatation of the visualized lower thoracic esophagus with presumable layering debris/ingested material. Please correlate with EGD.
[2017-10-13 14:41] VITALS: BP 140/90; TEMP 98.8; O2SAT 100
== END 2017-10-13 14:41 | disposition home or self-care (01) ==
LOC: C.ER 09:53
DX: R10.9 Unspecified abdominal pain (principal); E78.00 Pure hypercholesterolemia, unspecified; I12.9 Hypertensive chronic kidney disease with stage 1 through stage 4 chronic kidney disease, or unspecified chronic kidney disease; N18.9 Chronic kidney disease, unspecified; E03.9 Hypothyroidism, unspecified
CPT/HCPCS: 74177; 80053; 81001; 83690; 85025; 96374; 96375; 99285; J1885; J2405; Q9967

== ENCOUNTER 2017-11-19 11:23 | Inpatient (IN) | payer MEDICAID ==
[2017-11-19 11:25] VITALS: BMI 34.3
--- NOTE | 2017-11-19 11:47 | C.PDOC ---
History Of Present Illness 52 year old female with a past medical history of ovarian cancer (resolved) presents to the emergency department with complaints of a syncopal episode and two black GI bleeds today. Patient reports her last episode was prior to arrival , with the first one being this morning. Patient reports that she was having a routine bowel movement when she noticed black stool coming out, but with no associated pain or dizziness. 10 minutes later, the patient reports that she had the urge to use the bathroom again, having her second episode of black stool associated with a syncopal event. She states that she does not remember how long she remained unconscious for. She reports a similar episode five years ago,due to a esophageal bleed caused by a retained staple for achalasia. She reports no associated pain, and is currently asymptomatic. Patient reports that her last colonoscopy was one year ago. DENIES NSAID, IRON OR PEPTOBISMOL USE Time Seen by Provider: 11/19/17 11:38 Chief Complaint (Nursing): Dizziness/Lightheaded History Per: Patient History/Exam Limitations: no limitations Onset/Duration Of Symptoms: Hrs Current Symptoms Are (Timing): Still Present Number Of Syncopal Episodes: 1 Activity At Onset Of Symptoms: Other (using the toilet) Associated Symptoms Preceding Syncopal Episode: No Predromal Symptoms (Sudden Onset) Past Medical History Reviewed: Historical Data, Nursing Documentation, Vital Signs Vital Signs: Last Vital Signs Temp 98.1 F 11/19/17 11:28 Pulse 71 11/19/17 14:04 Resp 20 11/19/17 14:04 BP 124/88 11/19/17 14:04 Pulse Ox 98 11/19/17 14:05 - Medical History PMH: Anxiety, Gastritis, Gall Bladder Disease, HTN, Hypercholesterolemia, Hyperlipidemia, Hypothyroidism, Kidney Stones (NOT PASSED, NEEDS FURTHER EVAL), Malignancy (ovarian), Chronic Kidney Disease Denies: Colonic Polyps, Fractures, Sleep Apnea Surgical History: Cholecystectomy, Endoscopy (ESOPHAGEAL DILATION), Other Surgeries: [facility] - [facility] Procedures COLONOSCOPY (11/25/13) ESOPHAGEAL DILATION (06/04/14) ESOPHAGOGASTRODUODENOSCOPY [EGD] W/CLOSED BIOPSY (06/04/14) Family History: States: Diabetes - Social History Hx Tobacco Use: No Hx Alcohol Use: No Hx Substance Use: No - Immunization History Hx Tetanus Toxoid Vaccination: No Hx Influenza Vaccination: No Hx Pneumococcal Vaccination: No Review Of Systems Except As Marked, All Systems Reviewed And Found Negative. Constitutional: Negative for: Fever, Chills Cardiovascular: Negative for: Chest Pain Respiratory: Negative for: Cough Gastrointestinal: Positive for: Melena Physical Exam - Physical Exam Appears: Non-toxic, No Acute Distress Skin: Normal Color, Warm, Dry Head: Atraumatic, Normacephalic Eye(s): bilateral: Normal Inspection Nose: Normal Oral Mucosa: Moist Throat: Normal, No Erythema, No Exudate Neck: Normal, Supple Chest: Symmetrical Cardiovascular: Rhythm Regular, No Murmur Respiratory: Normal Breath Sounds, No Rales, No Rhonchi, No Wheezing Gastrointestinal/Abdominal: Normal Exam, Soft, No Tenderness, No Guarding, No Rebound Rectal: Melena Back: Normal Inspection Extremity: Normal ROM Neurological/Psych: Oriented x3, Normal Speech, Normal Cognition ED Course And Treatment - Laboratory Results Result Diagrams: 11/19/17 12:13 11/19/17 12:13 ECG: Interpreted By Me ECG Rhythm: Sinus Rhythm ECG Interpretation: Normal Rate From EC O2 Sat by Pulse Oximetry: 98 (RA) Pulse Ox Interpretation: Normal - Radiology CXR: Interpreted by Oh CXR Interpretation: Yes: No Acute Disease. No: Infiltrates Progress Note: Plan: Blood Bank Type and Screen. EKG. CMP. CBC. PTT. Prothrombin Time. CXR one View. Pepcid 20mg IVP. Protonix 40mg IVP. NaCl IV Fluids. Urinalysis Occult Blood, Stool Progress - Re-Evaluation Re-evaluation Note: 11/19/17 14:04 vss NAD NO RECUR SX SINCE INITIAL EVAL. D/W DR HEALY MED BROKE BEATER WILL ADMIT - Data Reviewed Data Reviewed: Lab, Diagnostic imaging, EKG, Old records Disposition Counseled Patient/Family Regarding: Studies Performed, Diagnosis - Disposition Disposition: HOSPITALIZED Disposition Time: 14:05 Condition: STABLE Forms: [facility] (Rwandan) - POA Present On Arrival: None, Falls Or Trauma - Clinical Impression Clinical Impression: Syncope, GI bleed - Scribe Statement The provider has reviewed the documentation as recorded by the Scribe (Rajiv Del Valle) Provider Attestation: All medical record entries made by the Scribe were at my direction and personally dictated by me. I have reviewed the chart and agree that the record accurately reflects my personal performance of the history, physical exam, medical decision making, and the department course for this patient. I have also personally directed, reviewed, and agree with the discharge instructions and disposition. Decision To Admit - Pt Status Changed To: Hospital Disposition Of: Inpatient - Admit Certification Admit to Inpatient:: After my assessment, the patient will require hospitalization for at least two midnights. This is because of the severity of symptoms shown, intensity of services needed, and/or the medical risk in this patient being treated as an outpatient. - InPatient: Physician Admission Certification: I certify that this patient requires 2 or more midnights of care for the following reason:: SEE NOTE - . Bed Request Type: Telemetry Admitting Physician: Tony Healy Patient Diagnosis: Syncope, GI bleed
[2017-11-19] MEDS ORDERED: Sodium Chloride 0.9% 1,000 ML IV ONE (12:03)
[2017-11-19] MEDS ORDERED: Sodium Chloride 0.9% 1,000 ML ONE (12:24)
[2017-11-19 12:32] LABS: BASO % 0.4 % (0.0-2.0); EOS % 0.4 % (0.0-4.0); LYMPH # 1.2 K/uL (1.0-4.3); LYMPH % 18.8 % (20.0-40.0); MEAN CELL VOLUME 85.9 fL (81.0-99.0); MEAN CORPUSCULAR HEMOGLOBIN 28.4 pg (27.0-31.0); MEAN CORPUSCULAR HGB CONC 33.1 g/dL (33.0-37.0); MEAN PLATELET VOLUME 8.1 fL (7.2-11.7); MONO # 0.6 K/uL (0.0-0.8); NEUT # 4.6 K/uL (1.8-7.0); NEUT % 71.4 % (50.0-75.0); RBC 3.12 Mil/uL (3.80-5.20); RED CELL DISTRIBUTION WIDTH 13.9 % (11.5-14.5); WHITE BLOOD COUNT 6.4 K/uL (4.8-10.8)
[2017-11-19 12:33] LABS: HEMOGLOBIN 8.9 g/dL (11.0-16.0)
[2017-11-19 12:36] LABS: URINE BILIRUBIN NEGATIVE (NEGATIVE); URINE BLOOD NEGATIVE (NEGATIVE); URINE CLARITY Clear (Clear); URINE COLOR Straw (YELLOW); URINE GLUCOSE (UA) NORMAL (Normal); URINE LEUKOCYTE ESTERASE NEG Leu/uL (Negative); URINE PROTEIN NEGATIVE (NEGATIVE); URINE UROBILINOGEN NORMAL mg/dL (0.2-1.0)
[2017-11-19 12:37] LABS: INR 1.2; PROTHROMBIN TIME 13.2 SECONDS (9.7-12.2)
[2017-11-19 12:49] LABS: ALB/GLOB RATIO 1.4 (1.0-2.1); ALBUMIN 3.9 g/dL (3.5-5.0); ALT/SGPT 31 U/L (9-52); AST/SGOT 19 U/L (14-36); BLOOD UREA NITROGEN 32 mg/dL (7-17); CALCIUM 8.8 mg/dl (8.6-10.4); GFR AFRICAN-AMERICAN > 60; GFR NON-AFRICAN AMERICAN > 60
[2017-11-19] MEDS ORDERED: Iodixanol 320 MG/ML 100 ML BOTTLE IV ONE (12:51)
--- NOTE | 2017-11-19 13:42 | CT ---
Date of service: 11/19/2017 PROCEDURE: CT HEAD WITHOUT CONTRAST. HISTORY: SYNCOPE COMPARISON: None available. TECHNIQUE: Axial computed tomography images were obtained through the head/brain without intravenous contrast. Radiation dose: Total exam DLP = 914.84 mGy-cm. This CT exam was performed using one or more of the following dose reduction techniques: Automated exposure control, adjustment of the mA and/or kV according to patient size, and/or use of iterative reconstruction technique. FINDINGS: HEMORRHAGE: No intracranial hemorrhage. BRAIN: Normal burton-white matter differentiation and density are appreciated throughout the cerebrum and cerebellum with the brainstem appearing unremarkable as well. There is no mass effect. There is no suspicious extra-axial fluid collection and the midline brain anatomy appears diffusely unremarkable. VENTRICLES: Unremarkable. No hydrocephalus. CALVARIUM: No destructive bony lesion or displaced fracture identified including through the skullbase. PARANASAL SINUSES: Unremarkable as visualized. No significant inflammatory changes. MASTOID AIR CELLS: Unremarkable as visualized. No inflammatory changes. OTHER FINDINGS: None. IMPRESSION: Unremarkable noncontrast head CT. Follow-up CT or MRI are available if clinically warranted.
--- NOTE | 2017-11-19 13:50 | CT ---
Date of service: 11/19/2017 PROCEDURE: CT Abdomen and Pelvis with contrast HISTORY: GI BLEED, SYNCOPE COMPARISON: Abdomen pelvis CT examination 10/13/2017 with contrast. TECHNIQUE: Contrast dose: Visipaque 320, 100 cc Radiation dose: Total exam DLP = 691.95 mGy-cm. This CT exam was performed using one or more of the following dose reduction techniques: Automated exposure control, adjustment of the mA and/or kV according to patient size, and/or use of iterative reconstruction technique. FINDINGS: LOWER THORAX: Linear atelectasis identified the bilateral lung bases versus fibrosis. Further, the distal esophagus is dilated and is partially filled fluid and air in this patient with a prior history of esophageal dilatation. Small hiatal hernia is also present. No significant interval change. . LIVER: Stable, numerous tiny lucencies scattered throughout the liver which are too small to characterize. No dominant masses appreciated or gross intrahepatic biliary dilatation. GALLBLADDER AND BILE DUCTS: Prior cholecystectomy reiterated. PANCREAS: Unremarkable. No gross lesion or ductal dilatation. SPLEEN: Unremarkable. ADRENALS: Unremarkable. No mass. KIDNEYS AND URETERS: Stable tiny lucency lower pole right kidney medially. Stable cyst upper to midpole left kidney laterally 3.5 cm x 3.3 cm. No interval obstructive uropathy or solid parenchymal mass. No perinephric reaction bilaterally. VASCULATURE: Unremarkable. No aortic aneurysm. BOWEL: No definite pattern of acute extravasation of iodinated contrast material within the lumen of the large or small bowel is identified. There is limited fecal loading throughout the right hemicolon with the large and small bowel otherwise appearing relatively collapsed. No bowel obstruction is apparent. APPENDIX: Normal appendix. PERITONEUM: Unremarkable. No free fluid. No free air. LYMPH NODES: Unremarkable. No enlarged lymph nodes. BLADDER: Unremarkable. REPRODUCTIVE: Prior hysterectomy reiterated. BONES: No acute fracture. OTHER FINDINGS: None. Etiology nonetheless. IMPRESSION: 1. Unremarkable appearing stomach, small and large bowel with limitation of the lack of oral contrast administration. Dilatation of the distal esophagus is reiterated with a small hiatal hernia present. 2. Stable scattered lucencies are seen throughout the liver presumably representing cysts but are ultimately nonspecific in etiology. 3. Stable left renal cyst. 4. Prior cholecystectomy. 5. Prior hysterectomy.
[2017-11-19 15:06] LABS: HEMOGLOBIN 8.3 g/dL (11.0-16.0); MEAN CELL VOLUME 85.4 fL (81.0-99.0); MEAN CORPUSCULAR HEMOGLOBIN 28.5 pg (27.0-31.0); MEAN CORPUSCULAR HGB CONC 33.4 g/dL (33.0-37.0); MEAN PLATELET VOLUME 7.8 fL (7.2-11.7); RBC 2.92 Mil/uL (3.80-5.20); RED CELL DISTRIBUTION WIDTH 14.1 % (11.5-14.5); WHITE BLOOD COUNT 6.8 K/uL (4.8-10.8)
--- NOTE | 2017-11-19 15:20 | CP.PCM.HP ---
<Brock oMnsalve - Last Filed: 11/19/17 16:12> History of Present Illness - History of Present Illness History of Present Illness: H&P for Medicine Service This is a 52 year old female with a hx of achalasia s/p myotomy 2000 and balloon dilatation in 2016, HTN, HLD, Hypothyroidism and GIB presenting to the ED with concern of dark stools for 1 day. She woke from sleep this morning went to the bathroom and had 4 episodes of dark, tarry, loose stools. She states that after the final bowel movement she passed out on the toilet bowl, in the seated position. She is unsure how long she was unconscious for but when she came to she was still seated on the toilet and had not fallen. She called for her to come look at the stool, he is at bedside now and confirms that it appeared dark and loose. She was brought to the ED by her for further evaluation. She denies dizziness, nausea, vomiting, chest pain, shortness of breath, weakness, numbness, tingling. She has not had any more bowel movements since this morning. Of note, this patient has a hx of achalasia and underwent myotomy at [facility] in 2008. She subsequently had a GIB in 2012 from this surgical site. In 2016 she has balloon dilatation of her esophagus for strictures. At that time she required 4 units of blood. She follows with Dr. Loredo and was scheduled for her next EGD in November 2017. Her last colonoscopy 06/23/17, last endoscopy 03/15/18. This patient also admits to a history of syncopal episodes from the time she was "very young." It is unclear whether these episodes are vaso-vagal/otherwise provoked. She has had several episodes while on the toilet but she denies straining. PMD: Israel Fink PMHx: achalasia, HTN, HLD, Hypothyroidism, syncope and GIB (2012) PSHx: Esophageal myotomy 2000, Last colonoscopy 06/23/17, last endoscopy 03/15/18 , hysterectomy, cholecystectomy Meds: Pepcid 20mg PO daily, Valsartan-HCTZ 320/25mg PO daily, Metoprolol Succ 25mg PO daily, Synthroid 50mcg PO daily, Pravastatin 20mg PO daily Allergies: NKDA; Allergic to strawberry, peach and pear FamHx: Diabetes in the mother, father, and brother Social Hx: Denies tobacco, alcohol and recreational drug use Present on Admission - Present on Admission Any Indicators Present on Admission: No Review of Systems - Constitutional Constitutional: Weakness. absent: Chills, Fever - EENT Eyes: absent: Blurred Vision, Change in Vision - Cardiovascular Cardiovascular: Diaphoresis. absent: Chest Pain, Dyspnea, Leg Edema - Respiratory Respiratory: absent: Cough, Dyspnea - Gastrointestinal Gastrointestinal: Melena. absent: Abdominal Pain, Constipation, Cramping, Dysphagia, Heartburn, Hematemesis, Nausea, Vomiting - Genitourinary Genitourinary: absent: Difficulty Urinating, Dysuria - Neurological Neurological: Syncope, Weakness. absent: Dizziness, Tingling Past Patient History - Infectious Disease Hx of Infectious Diseases: None - Past Medical History & Family History Past Medical History?: Yes - Past Social History Smoking Status: Never Smoked - CARDIAC Hx Hypercholesterolemia: Yes Hx Hypertension: Yes - PULMONARY Hx Sleep Apnea: No - NEUROLOGICAL Hx Neurological Disorder: Yes HX Cerebrovascular Accident: Yes (HX LAST 18 YEARS AGO) Hx Syncope: Yes (ASSOCIATED WITH PAIN , LAST EPISODE YESTERDAY EVENING) - HEENT Hx HEENT Problems: Yes Other/Comment: ACHALASIA - RENAL Hx Chronic Kidney Disease: Yes Hx Kidney Stones: Yes (NOT PASSED, NEEDS FURTHER EVAL) - ENDOCRINE/METABOLIC Hx Hypothyroidism: Yes - HEMATOLOGICAL/ONCOLOGICAL Hx Blood Disorders: Yes Hx Blood Transfusions: Yes (POST OP BLEED) Hx Cancer: Yes (ovarian ca- hysterectomy) Other/Comment: PT. CLAIMS SHE HAS A STAPLE THAT WAS LEFT IN HER ESOPHAGUS AFTER HER SURGERY WHICH CAUSED TO TO VOMIT BLOOD. SHE NEEDED A BLOOD TRANSFUSION. SHE WAS TOLD THE STAPLE WAS EMBEDED IN HER ESOPHAGEAL TISSUE AND CANNOT BE REMOVED. DR. LOREDO AWARE PER PT. - INTEGUMENTARY Hx Dermatological Problems: No - MUSCULOSKELETAL/RHEUMATOLOGICAL Hx Fractures: No - GASTROINTESTINAL Hx Gall Bladder Disease: Yes Hx Gastritis: Yes - GENITOURINARY/GYNECOLOGICAL Hx Genitourinary Disorders: Yes Hx Ovarian Cancer: Yes (WITH ROXANA AT 23 YRS. AGE) - PSYCHIATRIC Hx Anxiety: Yes Hx Substance Use: No - SURGICAL HISTORY Hx Cholecystectomy: Yes - ANESTHESIA Hx Anesthesia: Yes Hx Anesthesia Reactions: No Hx Malignant Hyperthermia: No Meds Allergies/Adverse Reactions: Allergies Allergy/AdvReac Type Severity Reaction Status Date / Time ORANGE Allergy Intermediate RASH Verified 11/19/17 11:32 pear Allergy Intermediate RASH Verified 11/19/17 11:32 strawberry Allergy Intermediate RASH Verified 11/19/17 11:32 APPLE Allergy Severe SWELLING Uncoded 10/13/17 09:57 fruit Allergy Severe SWELLING Uncoded 10/13/17 09:57 Physical Exam - Head Exam Head Exam: ATRAUMATIC, NORMOCEPHALIC - Eye Exam Eye Exam: EOMI, Normal appearance - ENT Exam ENT Exam: Mucous Membranes Moist - Respiratory Exam Respiratory Exam: Clear to Auscultation Bilateral, NORMAL BREATHING PATTERN - Cardiovascular Exam Cardiovascular Exam: REGULAR RHYTHM, +S1, +S2 - GI/Abdominal Exam GI & Abdominal Exam: Normal Bowel Sounds, Soft. absent: Distended, Guarding, Tenderness - Rectal Exam Additional comments: staining of the skin from dark BM, no gross blood on exam, no hemorrhoids - Extremities Exam Extremities exam: Positive for: normal inspection. Negative for: calf tenderness, pedal edema - Neurological Exam Neurological exam: Alert, Oriented x3 - Psychiatric Exam Psychiatric exam: Normal Affect, Normal Mood - Skin Skin Exam: Dry, Warm Results - Vital Signs Recent Vital Signs: Last Vital Signs Temp 98.1 F 11/19/17 11:28 Pulse 71 11/19/17 14:04 Resp 20 11/19/17 14:04 BP 124/88 11/19/17 14:04 Pulse Ox 98 11/19/17 14:06 - Labs Result Diagrams: 11/19/17 15:01 11/19/17 12:13 Labs: Laboratory Results - last 24 hr 11/19/17 11/19/17 11/19/17 12:13 12:13 12:13 WBC 6.4 RBC 3.12 L Hgb 8.9 L D Hct 26.8 L MCV 85.9 MCH 28.4 MCHC 33.1 RDW 13.9 Plt Count 282 MPV 8.1 Neut % (Auto) 71.4 Lymph % (Auto) 18.8 L [place] % (Auto) 9.0 Eos % (Auto) 0.4 Baso % (Auto) 0.4 Neut # (Auto) 4.6 Lymph # (Auto) 1.2 [place] # (Auto) 0.6 Eos # (Auto) 0.0 Baso # (Auto) 0.0 PT 13.2 H INR 1.2 APTT 32 Sodium Potassium Chloride Carbon Dioxide Anion Gap BUN Creatinine Est GFR ( Amer) Est GFR (Non-Af Amer) Random Glucose Calcium Total Bilirubin AST ALT Alkaline Phosphatase Total Protein Albumin Globulin Albumin/Globulin Ratio Urine Color Urine Clarity Urine pH Ur Specific [place] Urine Protein Urine Glucose (UA) Urine Ketones Urine Blood Urine Nitrate Urine Bilirubin Urine Urobilinogen Ur Leukocyte Esterase Urine WBC (Auto) Urine RBC (Auto) Stool Occult Blood Positive H Blood Type Antibody Screen 11/19/17 11/19/17 11/19/17 12:13 12:13 12:25 WBC RBC Hgb Hct MCV MCH MCHC RDW Plt Count MPV Neut % (Auto) Lymph % (Auto) [place] % (Auto) Eos % (Auto) Baso % (Auto) Neut # (Auto) Lymph # (Auto) [place] # (Auto) Eos # (Auto) Baso # (Auto) PT INR APTT Sodium 141 Potassium 4.4 Chloride 107 Carbon Dioxide 26 Anion Gap 13 BUN 32 H Creatinine 0.7 Est GFR ( Amer) > 60 Est GFR (Non-Af Amer) > 60 Random Glucose 100 Calcium 8.8 Total Bilirubin 0.2 AST 19 ALT 31 Alkaline Phosphatase 64 Total Protein 6.8 Albumin 3.9 Globulin 2.9 Albumin/Globulin Ratio 1.4 Urine Color Straw Urine Clarity Clear Urine pH 6.0 Ur Specific [place] 1.018 Urine Protein Negative Urine Glucose (UA) Normal Urine Ketones Negative Urine Blood Negative Urine Nitrate Negative Urine Bilirubin Negative Urine Urobilinogen Normal Ur Leukocyte Esterase Neg Urine WBC (Auto) 1 Urine RBC (Auto) < 1 Stool Occult Blood Blood Type A POSITIVE Antibody Screen Negative 11/19/17 15:01 WBC 6.8 RBC 2.92 L Hgb 8.3 L Hct 25.0 L MCV 85.4 MCH 28.5 MCHC 33.4 RDW 14.1 Plt Count 260 MPV 7.8 Neut % (Auto) Lymph % (Auto) [place] % (Auto) Eos % (Auto) Baso % (Auto) Neut # (Auto) Lymph # (Auto) [place] # (Auto) Eos # (Auto) Baso # (Auto) PT INR APTT Sodium Potassium Chloride Carbon Dioxide Anion Gap BUN Creatinine Est GFR ( Amer) Est GFR (Non-Af Amer) Random Glucose Calcium Total Bilirubin AST ALT Alkaline Phosphatase Total Protein Albumin Globulin Albumin/Globulin Ratio Urine Color Urine Clarity Urine pH Ur Specific [place] Urine Protein Urine Glucose (UA) Urine Ketones Urine Blood Urine Nitrate Urine Bilirubin Urine Urobilinogen Ur Leukocyte Esterase Urine WBC (Auto) Urine RBC (Auto) Stool Occult Blood Blood Type Antibody Screen Assessment & Plan - Assessment and Plan (Free Text) Plan: Melanotic Stools Hemoglobin 09/2017: 12.4 On admission hemoglobin: 8.9 and 8.3 repeat Suspected GIB; in setting of GIB Hx FOBT+ CT abdomen/pelvis with IV contrast- hiatal hernia, L renal cyst, hepatic cysts GI Consult placed to Dr. Loredo- Lynnette appreciated Transfuse with plan for scope in morning CBC q6hrs- follow up Follow up ferritin and reticulocyte count Type and screen completed; transfusion consent sign 1u PRB ordered- transfuse prn NS@100mL/hr Protonix 40mg IV BID Vitals stable Syncope Pt admits to longstanding history of syncopal episodes Vaso-vagal vs Acute hypovolemia Vitals stable CT Head negative HTN Holding home meds in current clinical settings; resume when appropriate HLD Holding home meds in current clinical settings; resume when appropriate Hypothyroidism Holding home meds in current clinical settings; resume when appropriate PPX Protonix 40mg IV BID DVT ppx contraindicated Case discussed with Dr. Niraj Monsalve D.O. <Tony Healy - Last Filed: 11/19/17 18:06> Results - Vital Signs Recent Vital Signs: Last Vital Signs Temp 98.1 F 11/19/17 16:00 Pulse 68 11/19/17 16:00 Resp 20 11/19/17 16:00 BP 127/78 11/19/17 16:00 Pulse Ox 98 11/19/17 16:00 - Labs Result Diagrams: 11/19/17 15:01 11/19/17 12:13 Labs: Laboratory Results - last 24 hr 11/19/17 11/19/17 11/19/17 12:13 12:13 12:13 WBC 6.4 RBC 3.12 L Hgb 8.9 L D Hct 26.8 L MCV 85.9 MCH 28.4 MCHC 33.1 RDW 13.9 Plt Count 282 MPV 8.1 Neut % (Auto) 71.4 Lymph % (Auto) 18.8 L [place] % (Auto) 9.0 Eos % (Auto) 0.4 Baso % (Auto) 0.4 Neut # (Auto) 4.6 Lymph # (Auto) 1.2 [place] # (Auto) 0.6 Eos # (Auto) 0.0 Baso # (Auto) 0.0 Retic Count PT 13.2 H INR 1.2 APTT 32 Sodium Potassium Chloride Carbon Dioxide Anion Gap BUN Creatinine Est GFR ( Amer) Est GFR (Non-Af Amer) Random Glucose Calcium Ferritin Total Bilirubin AST ALT Alkaline Phosphatase Total Protein Albumin Globulin Albumin/Globulin Ratio Urine Color Urine Clarity Urine pH Ur Specific [place] Urine Protein Urine Glucose (UA) Urine Ketones Urine Blood Urine Nitrate Urine Bilirubin Urine Urobilinogen Ur Leukocyte Esterase Urine WBC (Auto) Urine RBC (Auto) Stool Occult Blood Positive H Blood Type Antibody Screen 11/19/17 11/19/17 11/19/17 12:13 12:13 12:25 WBC RBC Hgb Hct MCV MCH MCHC RDW Plt Count MPV Neut % (Auto) Lymph % (Auto) [place] % (Auto) Eos % (Auto) Baso % (Auto) Neut # (Auto) Lymph # (Auto) [place] # (Auto) Eos # (Auto) Baso # (Auto) Retic Count PT INR APTT Sodium 141 Potassium 4.4 Chloride 107 Carbon Dioxide 26 Anion Gap 13 BUN 32 H Creatinine 0.7 Est GFR ( Amer) > 60 Est GFR (Non-Af Amer) > 60 Random Glucose 100 Calcium 8.8 Ferritin Total Bilirubin 0.2 AST 19 ALT 31 Alkaline Phosphatase 64 Total Protein 6.8 Albumin 3.9 Globulin 2.9 Albumin/Globulin Ratio 1.4 Urine Color Straw Urine Clarity Clear Urine pH 6.0 Ur Specific [place] 1.018 Urine Protein Negative Urine Glucose (UA) Normal Urine Ketones Negative Urine Blood Negative Urine Nitrate Negative Urine Bilirubin Negative Urine Urobilinogen Normal Ur Leukocyte Esterase Neg Urine WBC (Auto) 1 Urine RBC (Auto) < 1 Stool Occult Blood Blood Type A POSITIVE Antibody Screen Negative 11/19/17 11/19/17 11/19/17 15:01 16:02 16:02 WBC 6.8 RBC 2.92 L Hgb 8.3 L Hct 25.0 L MCV 85.4 MCH 28.5 MCHC 33.4 RDW 14.1 Plt Count 260 MPV 7.8 Neut % (Auto) Lymph % (Auto) [place] % (Auto) Eos % (Auto) Baso % (Auto) Neut # (Auto) Lymph # (Auto) [place] # (Auto) Eos # (Auto) Baso # (Auto) Retic Count 2.2 H PT INR APTT Sodium Potassium Chloride Carbon Dioxide Anion Gap BUN Creatinine Est GFR ( Amer) Est GFR (Non-Af Amer) Random Glucose Calcium Ferritin 10.5 Total Bilirubin AST ALT Alkaline Phosphatase Total Protein Albumin Globulin Albumin/Globulin Ratio Urine Color Urine Clarity Urine pH Ur Specific [place] Urine Protein Urine Glucose (UA) Urine Ketones Urine Blood Urine Nitrate Urine Bilirubin Urine Urobilinogen Ur Leukocyte Esterase Urine WBC (Auto) Urine RBC (Auto) Stool Occult Blood Blood Type Antibody Screen Attending/Attestation - Attestation I have personally seen and examined this patient.: Yes I have fully participated in the care of the patient.: Yes I have reviewed all pertinent clinical information: Yes Notes (Text): Patient was seen and examined by me.History taken at ER from the patient. Discussed with the resident at ER 1.Carlita,upper GI bleeding -Hb drop from 12 to 8.9 within [address] CT done ,showed 3. Syncope-Likely due to blood loss,has h/o syncope when she was young. CT head negative 2.Patient has history of Achalasia s/p myotomy 2000 , balloon dilatation in 2016 ,Had surgical site bleeding in 2012 and needed 4 bags of blood transfusion needed and she states that she had scar in 4. HTN 5. HLD 6. Hypothyroidism Resident spoke to Dr Villanueva we will continue protonix 40mg bid and monitor cbc Transfuse blood keep NPO Assessment and the plan discussed with the resident and I agree with the documentation
--- NOTE | 2017-11-19 15:26 | RAD ---
Date of service: 11/19/2017 PROCEDURE: CHEST RADIOGRAPH, 1 VIEW HISTORY: GI Bleeding COMPARISON: Chest radiographs 04/19/2018. FINDINGS: LUNGS: Linear fibrotic changes are reiterated at the left base with limited volume loss left lung reiterated. Fibrotic changes in the left costophrenic sulcus as well. No acute pulmonary disease appreciable. PLEURA: No pneumothorax or pleural fluid seen. CARDIOVASCULAR: Normal. OSSEOUS STRUCTURES: No significant abnormalities. VISUALIZED UPPER ABDOMEN: Normal. OTHER FINDINGS: None. IMPRESSION: Limited volume loss and fibrosis are seen at the left lung as discussed above with no acute cardiopulmonary disease appreciable this time.
[2017-11-19] MEDS ORDERED: Sodium Chloride 0.9% 1,000 ML IV SCH (16:00)
--- NOTE | 2017-11-19 17:24 | CP.PCM.CON ---
History of Present Illness - History of Present Illness History of Present Illness: COVERING DR AYERS/ALEXANDRO This is a 52 year old female with a hx of achalasia s/p myotomy 2000 and balloon dilatation in 2016, HTN, HLD, Hypothyroidism and GIB presenting to the ED with concern of dark stools for 1 day. She woke from sleep this morning went to the bathroom and had 4 episodes of dark, tarry, loose stools. She states that after the final bowel movement she passed out on the toilet bowl, in the seated position. She is unsure how long she was unconscious for but when she came to she was still seated on the toilet and had not fallen. She called for her to come look at the stool, he is at bedside now and confirms that it appeared dark and loose AND TARRY . She was brought to the ED by her for further evaluation. She denies dizziness, nausea, vomiting, chest pain, shortness of breath, weakness, numbness, tingling. She has not had any more bowel movements since this morning. Of note, this patient has a hx of achalasia and underwent myotomy at [facility] in 2003. She subsequently had a GIB in 2012 from this surgical site. In 2017 she has balloon dilatation of her esophagus for strictures. At that time she required 4 units of blood. She follows with Dr. Ayers and was scheduled for her next EGD in November 2017. Her last colonoscopy 06/23/17, last endoscopy 03/15/18. This patient also admits to a history of syncopal episodes from the time she was "very young." It is unclear whether these episodes are vaso-vagal/otherwise provoked. She has had several episodes while on the toilet but she denies straining. She denies EtoH, ASA or NSAID use. No wretching or vomiting. No CP, SOB. She did not vomit and blood or coffee grounds and denies any heartburn. She has started to have some dysphagia in recent weeks and a therapeutic EGD was scheduled for 11/29. Review of Systems - Cardiovascular Cardiovascular: absent: Chest Pain, Dyspnea on Exertion - Respiratory Respiratory: absent: Cough, Snoring, Stridor - Gastrointestinal Gastrointestinal: As Per HPI Past Patient History - Infectious Disease Hx of Infectious Diseases: None - Past Medical History & Family History Past Medical History?: Yes - Past Social History Smoking Status: Never Smoked Alcohol: None Drugs: Denies - CARDIAC Hx Hypercholesterolemia: Yes Hx Hypertension: Yes - PULMONARY Hx Sleep Apnea: No - NEUROLOGICAL Hx Neurological Disorder: Yes HX Cerebrovascular Accident: Yes (HX LAST 18 YEARS AGO) Hx Syncope: Yes (ASSOCIATED WITH PAIN , LAST EPISODE YESTERDAY EVENING) - HEENT Hx HEENT Problems: Yes Other/Comment: ACHALASIA - RENAL Hx Chronic Kidney Disease: Yes Hx Kidney Stones: Yes (NOT PASSED, NEEDS FURTHER EVAL) - ENDOCRINE/METABOLIC Hx Hypothyroidism: Yes - HEMATOLOGICAL/ONCOLOGICAL Hx Blood Disorders: Yes Hx Blood Transfusions: Yes (POST OP BLEED) Hx Cancer: Yes (ovarian ca- hysterectomy) Hx Cirrhosis: No Hx Hepatitis A: No Hx Hepatitis B: No Hx Hepatitis C: No Hx Human Immunodeficiency Virus (HIV): No Other/Comment: PT. CLAIMS SHE HAS A STAPLE THAT WAS LEFT IN HER ESOPHAGUS AFTER HER SURGERY WHICH CAUSED TO TO VOMIT BLOOD. SHE NEEDED A BLOOD TRANSFUSION. SHE WAS TOLD THE STAPLE WAS EMBEDED IN HER ESOPHAGEAL TISSUE AND CANNOT BE REMOVED. DR. AYERS AWARE PER PT. - INTEGUMENTARY Hx Dermatological Problems: No - MUSCULOSKELETAL/RHEUMATOLOGICAL Hx Fractures: No - GASTROINTESTINAL Hx Gastrointestinal Disorders: Yes (Achalasia ) Hx Bowel Surgery: No Hx Clostridium Difficile: No Hx Colitis: No Hx Colostomy: No Hx Constipation: No Hx Crohn's Disease: No Hx Diarrhea: No Hx Diverticulitis: No Hx Esophageal Varices: No Hx Fatty Liver Disease: No Hx Gall Bladder Disease: Yes Hx Gastritis: Yes Hx Gastroesophageal Reflux: Yes Hx Hemorrhoids: Yes Hx Ileostomy: No Hx Irritable Bowel: No Hx Liver Failure: No Hx Nausea: No Hx Pancreatitis: No HX Swallowing Problems: Yes Hx Ulcer: No Hx Vomiting: No - GENITOURINARY/GYNECOLOGICAL Hx Genitourinary Disorders: Yes Hx Ovarian Cancer: Yes (WITH ROXANA AT 23 YRS. AGE) - PSYCHIATRIC Hx Anxiety: Yes Hx Substance Use: No - SURGICAL HISTORY Hx Cholecystectomy: Yes - ANESTHESIA Hx Anesthesia: Yes Hx Anesthesia Reactions: No Hx Malignant Hyperthermia: No Meds Allergies/Adverse Reactions: Allergies Allergy/AdvReac Type Severity Reaction Status Date / Time ORANGE Allergy Intermediate RASH Verified 11/19/17 11:32 pear Allergy Intermediate RASH Verified 11/19/17 11:32 strawberry Allergy Intermediate RASH Verified 11/19/17 11:32 APPLE Allergy Severe SWELLING Uncoded 10/13/17 09:57 fruit Allergy Severe SWELLING Uncoded 10/13/17 09:57 - Medications Medications: Current Medications Acetaminophen (Tylenol 325mg Tab) 650 mg PO Q6 PRN PRN Reason: Fever >100.4 F or pain 4-7 Dextrose/Lactated Ringer's (Dextrose 5%/Lactated Ringer's) 1,000 mls @ 100 mls/ hr IV .Q10H JERI Sodium Chloride (Sodium Chloride 0.9%) 1,000 mls @ 100 mls/hr IV .Q10H JERI Pantoprazole Sodium (Protonix Inj) 40 mg IVP Q12H JERI Last Admin: 11/19/17 14:42 Dose: Not Given Physical Exam - Constitutional Appears: No Acute Distress - Head Exam Head Exam: ATRAUMATIC, NORMOCEPHALIC - Eye Exam Eye Exam: EOMI, PERRL - Respiratory Exam Respiratory Exam: NORMAL BREATHING PATTERN - Cardiovascular Exam Cardiovascular Exam: REGULAR RHYTHM, +S1 - GI/Abdominal Exam GI & Abdominal Exam: Normal Bowel Sounds, Soft. absent: Organomegaly, Tenderness Additional comments: Obese - Rectal Exam Rectal Exam: Deferred - Extremities Exam Extremities exam: Positive for: normal inspection. Negative for: pedal edema - Neurological Exam Neurological exam: Alert, CN II-XII Intact, Oriented x3 - Psychiatric Exam Psychiatric exam: Normal Affect, Normal Mood - Skin Skin Exam: Dry, Warm Results - Vital Signs Recent Vital Signs: Last Vital Signs Temp 98.1 F 11/19/17 16:00 Pulse 68 11/19/17 16:00 Resp 20 11/19/17 16:00 BP 127/78 11/19/17 16:00 Pulse Ox 98 11/19/17 16:00 - Labs Result Diagrams: 11/19/17 15:01 11/19/17 12:13 Labs: Laboratory Results - last 24 hr 11/19/17 11/19/17 11/19/17 12:13 12:13 12:13 WBC 6.4 RBC 3.12 L Hgb 8.9 L D Hct 26.8 L MCV 85.9 MCH 28.4 MCHC 33.1 RDW 13.9 Plt Count 282 MPV 8.1 Neut % (Auto) 71.4 Lymph % (Auto) 18.8 L [place] % (Auto) 9.0 Eos % (Auto) 0.4 Baso % (Auto) 0.4 Neut # (Auto) 4.6 Lymph # (Auto) 1.2 [place] # (Auto) 0.6 Eos # (Auto) 0.0 Baso # (Auto) 0.0 Retic Count PT 13.2 H INR 1.2 APTT 32 Sodium Potassium Chloride Carbon Dioxide Anion Gap BUN Creatinine Est GFR ( Amer) Est GFR (Non-Af Amer) Random Glucose Calcium Ferritin Total Bilirubin AST ALT Alkaline Phosphatase Total Protein Albumin Globulin Albumin/Globulin Ratio Urine Color Urine Clarity Urine pH Ur Specific [place] Urine Protein Urine Glucose (UA) Urine Ketones Urine Blood Urine Nitrate Urine Bilirubin Urine Urobilinogen Ur Leukocyte Esterase Urine WBC (Auto) Urine RBC (Auto) Stool Occult Blood Positive H Blood Type Antibody Screen 11/19/17 11/19/17 11/19/17 12:13 12:13 12:25 WBC RBC Hgb Hct MCV MCH MCHC RDW Plt Count MPV Neut % (Auto) Lymph % (Auto) [place] % (Auto) Eos % (Auto) Baso % (Auto) Neut # (Auto) Lymph # (Auto) [place] # (Auto) Eos # (Auto) Baso # (Auto) Retic Count PT INR APTT Sodium 141 Potassium 4.4 Chloride 107 Carbon Dioxide 26 Anion Gap 13 BUN 32 H Creatinine 0.7 Est GFR ( Amer) > 60 Est GFR (Non-Af Amer) > 60 Random Glucose 100 Calcium 8.8 Ferritin Total Bilirubin 0.2 AST 19 ALT 31 Alkaline Phosphatase 64 Total Protein 6.8 Albumin 3.9 Globulin 2.9 Albumin/Globulin Ratio 1.4 Urine Color Straw Urine Clarity Clear Urine pH 6.0 Ur Specific [place] 1.018 Urine Protein Negative Urine Glucose (UA) Normal Urine Ketones Negative Urine Blood Negative Urine Nitrate Negative Urine Bilirubin Negative Urine Urobilinogen Normal Ur Leukocyte Esterase Neg Urine WBC (Auto) 1 Urine RBC (Auto) < 1 Stool Occult Blood Blood Type A POSITIVE Antibody Screen Negative 11/19/17 11/19/17 11/19/17 15:01 16:02 16:02 WBC 6.8 RBC 2.92 L Hgb 8.3 L Hct 25.0 L MCV 85.4 MCH 28.5 MCHC 33.4 RDW 14.1 Plt Count 260 MPV 7.8 Neut % (Auto) Lymph % (Auto) [place] % (Auto) Eos % (Auto) Baso % (Auto) Neut # (Auto) Lymph # (Auto) [place] # (Auto) Eos # (Auto) Baso # (Auto) Retic Count 2.2 H PT INR APTT Sodium Potassium Chloride Carbon Dioxide Anion Gap BUN Creatinine Est GFR ( Amer) Est GFR (Non-Af Amer) Random Glucose Calcium Ferritin 10.5 Total Bilirubin AST ALT Alkaline Phosphatase Total Protein Albumin Globulin Albumin/Globulin Ratio Urine Color Urine Clarity Urine pH Ur Specific [place] Urine Protein Urine Glucose (UA) Urine Ketones Urine Blood Urine Nitrate Urine Bilirubin Urine Urobilinogen Ur Leukocyte Esterase Urine WBC (Auto) Urine RBC (Auto) Stool Occult Blood Blood Type Antibody Screen Assessment & Plan (1) Gastrointestinal hemorrhage with melena Assessment and Plan: Patent with acute melena this morning and elevated BUN/Cr and anemia due to acute upper GI blood loss. R/O PUD/gastritis with bleeding, bleeding from achalasia or Myotomy site which has occured in the past. Reports to have a staple or suture material visible in lower esophagus. IV Protonix q12 Transfuse to hgb>9 NPO Will plan emergent EGD to be done this evening If further dilatation is needed that will be deferred to Dr ayers. Status: Acute Priority: High (2) Syncope Assessment and Plan: Due to GI bleeding. NO head trauma and patient recalls event. Status: Acute Priority: Medium (3) Anemia due to blood loss, acute Status: Acute Priority: High (4) Esophageal achalasia Assessment and Plan: S/P Heller myotomy and need for recurrent dilatation;. Case discussed briefly with Dr Ayers Status: Chronic Priority: Medium
[2017-11-19] MEDS ORDERED: Propofol 10 mg/ml Inj (20 ML) ONE ×2 (17:51→18:23)
[2017-11-19] MEDS ORDERED: Succinylcholine Chloride 20 mg/ml Syr (5 ml) IV ONE (17:52)
[2017-11-19] MEDS ORDERED: Etomidate 20 mg/10ml Inj IV ONE (17:52)
[2017-11-19] MEDS ORDERED: Phenylephrine 10 mg/ml Inj ONE (17:52)
[2017-11-19] MEDS: Pantoprazole 80 MG in Sodium Chloride 0.9% 100 ML IVP SCH (20:18)
[2017-11-19] MEDS: Dextrose 5%/Lactated Ringer's 1,000 ML IV SCH (20:21)
[2017-11-20] MEDS: Dextrose 5%/Lactated Ringer's 1,000 ML IV SCH ×2 (00:32→10:54)
[2017-11-20 02:33] LABS: HEMOGLOBIN 8.9 g/dL (11.0-16.0); MEAN CORPUSCULAR HEMOGLOBIN 28.1 pg (27.0-31.0); MEAN CORPUSCULAR HGB CONC 32.7 g/dL (33.0-37.0); MEAN PLATELET VOLUME 7.9 fL (7.2-11.7); RBC 3.18 Mil/uL (3.80-5.20); RED CELL DISTRIBUTION WIDTH 14.1 % (11.5-14.5); WHITE BLOOD COUNT 5.6 K/uL (4.8-10.8)
[2017-11-20] MEDS: Pantoprazole 80 MG in Sodium Chloride 0.9% 100 ML IVP SCH (05:47)
[2017-11-20] MEDS: Pantoprazole 80 MG in Sodium Chloride 0.9% 100 ML IV SCH ×2 (05:52→16:42)
[2017-11-20 07:52] LABS: INR 1.2; PROTHROMBIN TIME 13.3 SECONDS (9.7-12.2)
[2017-11-20 07:53] LABS: BASO % 0.9 % (0.0-2.0); EOS # 0.1 K/uL (0.0-0.7); EOS % 1.3 % (0.0-4.0); HEMOGLOBIN 9.3 g/dL (11.0-16.0); LYMPH # 1.6 K/uL (1.0-4.3); LYMPH % 33.8 % (20.0-40.0); MEAN CELL VOLUME 86.4 fL (81.0-99.0); MEAN CORPUSCULAR HEMOGLOBIN 29.3 pg (27.0-31.0); MEAN PLATELET VOLUME 8.1 fL (7.2-11.7); MONO # 0.5 K/uL (0.0-0.8); MONO % 9.4 % (0.0-10.0); NEUT # 2.6 K/uL (1.8-7.0); NEUT % 54.6 % (50.0-75.0); RBC 3.17 Mil/uL (3.80-5.20); RED CELL DISTRIBUTION WIDTH 14.2 % (11.5-14.5); WHITE BLOOD COUNT 4.8 K/uL (4.8-10.8)
[2017-11-20 08:13] LABS: ALB/GLOB RATIO 1.3 (1.0-2.1); ALBUMIN 3.5 g/dL (3.5-5.0); ALT/SGPT 32 U/L (9-52); AST/SGOT 22 U/L (14-36); BLOOD UREA NITROGEN 13 mg/dL (7-17); CALCIUM 8.5 mg/dl (8.6-10.4); GFR AFRICAN-AMERICAN > 60; GFR NON-AFRICAN AMERICAN > 60
--- NOTE | 2017-11-20 13:20 | CP.PCM.PN ---
<Darion Canada - Last Filed: 11/20/17 22:55> Subjective - Date & Time of Evaluation Date of Evaluation: 11/20/17 Time of Evaluation: 12:30 - Subjective Subjective: PGY-[address] Miguel Rodney Patient is seen and examined at bedside. Patient says she feels slightly better. Patient reports not going to the bathroom and not having melanotic stools. Patient went for EGD yesterday. Patient admits to having mild chest pressure. Patient denies fever, chills, SOB, headache, nausea, vomiting, diarrhea, constipation or dysuria. is by her bedside. Objective - Vital Signs/Intake and Output Vital Signs (last 24 hours): Temp Pulse Resp BP Pulse Ox 97.7 F 62 20 139/84 98 11/20/17 07:00 11/20/17 07:00 11/20/17 07:00 11/20/17 07:00 11/20/17 07:00 Intake and Output: 11/20/17 11/20/17 06:59 18:59 Intake Total 1105 Balance 1105 - Medications Medications: Current Medications Acetaminophen (Tylenol 325mg Tab) 650 mg PO Q6 PRN PRN Reason: Fever >100.4 F or pain 4-7 Dextrose/Lactated Ringer's (Dextrose 5%/Lactated Ringer's) 1,000 mls @ 100 mls/ hr IV .Q10H [facility] Last Admin: 11/20/17 10:54 Dose: 100 mls/hr Pantoprazole Sodium 80 mg/ (Sodium Chloride) 100 mls @ 10 mls/hr IV .Q10H [facility] PRN Reason: 8 MG/HR Last Admin: 11/20/17 05:52 Dose: 10 mls/hr - Labs Labs: 11/20/17 07:36 11/20/17 07:37 PT 13.3 SECONDS (9.7-12.2) H 11/20/17 07:37 INR 1.2 11/20/17 07:37 APTT 33 SECONDS (21-34) 11/20/17 07:37 - Constitutional Appears: Well, Non-toxic, No Acute Distress - Head Exam Head Exam: ATRAUMATIC, NORMAL INSPECTION, NORMOCEPHALIC - Eye Exam Eye Exam: EOMI, Normal appearance - ENT Exam ENT Exam: Mucous Membranes Dry, Normal Exam - Neck Exam Neck Exam: Full ROM, Normal Inspection - Respiratory Exam Respiratory Exam: Clear to Ausculation Bilateral, NORMAL BREATHING PATTERN. absent: Rales, Rhonchi, Wheezes - Cardiovascular Exam Cardiovascular Exam: REGULAR RHYTHM, +S1, +S2 - GI/Abdominal Exam GI & Abdominal Exam: Soft, Normal Bowel Sounds. absent: Distended, Firm, Guarding - Extremities Exam Extremities Exam: Full ROM, Normal Inspection. absent: Pedal Edema, Tenderness - Back Exam Back Exam: NORMAL INSPECTION - Neurological Exam Neurological Exam: Alert, Awake - Psychiatric Exam Psychiatric exam: Normal Affect, Normal Mood - Skin Skin Exam: Dry, Intact, Normal Color Assessment and Plan - Assessment and Plan (Free Text) Plan: Melanotic Stools Patient does not report any new episode of melanotic stools today (11/20) Hemoglobin 11/20: 9.3 from 8.9 yesterday FOBT+ CT abdomen/pelvis with IV contrast- hiatal hernia, L renal cyst, hepatic cysts GI Consult placed to Dr. Mitchell- EGD done * Bleeding esophageal ulcer. Treated with argon plasma coagulation (APC) * a Heller myotomy with exposed suture/staple anastomosis was found * Gastritis. Biopsied * Normal examined duodenum * GI recs - protonix 40mg IV daily, repeat upper endoscopy in 1 month to check healing, advance diet to clear liquids if H/H stable in am ferritin: 10.5 Type and screen completed; transfusion consent sign 1u PRB ordered- transfuse prn F/U CBC tomorrow Vitals stable, continue monitoring Syncope no new episodes of syncope Pt admits to longstanding history of syncopal episodes Vaso-vagal vs Acute hypovolemia Vitals stable, continue monitoring CT Head negative F/U am labs HTN continue Holding home meds in current clinical settings consider restarting meds if stable HLD continue Holding home meds in current clinical settings consider restarting meds if stable Hypothyroidism continue Holding home meds in current clinical settings consider restarting meds if stable PPX Protonix 40mg IV BID DVT ppx contraindicated Liquid diet as per GI recs Plan discussed with Dr Miguel Canada, PGY-1 <Miguel Rodney H - Last Filed: 11/21/17 07:59> Objective - Vital Signs/Intake and Output Vital Signs (last 24 hours): Temp Pulse Resp BP Pulse Ox 97.9 F 71 20 150/94 H 97 11/21/17 07:00 11/21/17 07:00 11/21/17 07:00 11/21/17 07:00 11/21/17 07:00 Intake and Output: 11/21/17 11/21/17 06:59 18:59 Intake Total 2650 Balance 2650 - Medications Medications: Current Medications Acetaminophen (Tylenol 325mg Tab) 650 mg PO Q6 PRN PRN Reason: Fever >100.4 F or pain 4-7 Pantoprazole Sodium 80 mg/ (Sodium Chloride) 100 mls @ 10 mls/hr IV .Q10H [facility]I PRN Reason: 8 MG/HR Last Admin: 11/21/17 03:32 Dose: 10 mls/hr Dextrose/Sodium Chloride (Dextrose 5%/0.9% Ns 1000 Ml) 1,000 mls @ 100 mls/hr IV .Q10H [facility]ERI Last Admin: 11/20/17 21:08 Dose: 100 mls/hr - Labs Labs: 11/21/17 07:37 11/20/17 07:37 PT 13.3 SECONDS (9.7-12.2) H 11/20/17 07:37 INR 1.2 11/20/17 07:37 APTT 33 SECONDS (21-34) 11/20/17 07:37 Attending/Attestation - Attestation I have personally seen and examined this patient.: Yes I have fully participated in the care of the patient.: Yes I have reviewed all pertinent clinical information, including history, physical exam and plan: Yes Notes (Text): 11/21/17 07:53 Medical attending: Patient was seen and examined by me. Agree with the above note by the resident, we saw patient together The patient was not in any acute distress She had underwent EGD and had one bleeding area found and this was stopped by GI with APC. The patient is currently on IV protonix Currently the CBC was stable, her hemoglobin was better than yesterday As mentioned previously there is a history of achalascia and myotomy in 2000. She has been a history of upper GI bleeding requiring blood transfusions. Miguel Rodney
[2017-11-20 13:57] LABS: BASO % 0.6 % (0.0-2.0); EOS # 0.1 K/uL (0.0-0.7); LYMPH # 1.7 K/uL (1.0-4.3); LYMPH % 26.5 % (20.0-40.0); MEAN CELL VOLUME 86.3 fL (81.0-99.0); MEAN CORPUSCULAR HEMOGLOBIN 29.7 pg (27.0-31.0); MEAN CORPUSCULAR HGB CONC 34.4 g/dL (33.0-37.0); MEAN PLATELET VOLUME 8.1 fL (7.2-11.7); MONO # 0.6 K/uL (0.0-0.8); MONO % 8.6 % (0.0-10.0); NEUT # 4.1 K/uL (1.8-7.0); NEUT % 63.3 % (50.0-75.0); RBC 3.29 Mil/uL (3.80-5.20); RED CELL DISTRIBUTION WIDTH 14.1 % (11.5-14.5); WHITE BLOOD COUNT 6.5 K/uL (4.8-10.8)
--- NOTE | 2017-11-20 13:58 | CP.PCM.PN ---
Subjective - Date & Time of Evaluation Date of Evaluation: 11/20/17 Time of Evaluation: 13:55 - Subjective Subjective: Appropriate rise in Hgb Esoph ulcer with surgical sacr nearby no BMs C/O chronic constipation Objective - Vital Signs/Intake and Output Vital Signs (last 24 hours): Temp Pulse Resp BP Pulse Ox 97.7 F 62 20 139/84 98 11/20/17 07:00 11/20/17 07:00 11/20/17 07:00 11/20/17 07:00 11/20/17 07:00 Intake and Output: 11/20/17 11/20/17 06:59 18:59 Intake Total 1105 Balance 1105 - Medications Medications: Current Medications Acetaminophen (Tylenol 325mg Tab) 650 mg PO Q6 PRN PRN Reason: Fever >100.4 F or pain 4-7 Dextrose/Lactated Ringer's (Dextrose 5%/Lactated Ringer's) 1,000 mls @ 100 mls/ hr IV .Q10H [facility]ERI Last Admin: 11/20/17 10:54 Dose: 100 mls/hr Pantoprazole Sodium 80 mg/ (Sodium Chloride) 100 mls @ 10 mls/hr IV .Q10H [facility]I PRN Reason: 8 MG/HR Last Admin: 11/20/17 05:52 Dose: 10 mls/hr - Labs Labs: 11/20/17 07:36 11/20/17 07:37 PT 13.3 SECONDS (9.7-12.2) H 11/20/17 07:37 INR 1.2 11/20/17 07:37 APTT 33 SECONDS (21-34) 11/20/17 07:37 - Constitutional Appears: Well, No Acute Distress - Respiratory Exam Respiratory Exam: Clear to Ausculation Bilateral - Cardiovascular Exam Cardiovascular Exam: REGULAR RHYTHM - GI/Abdominal Exam GI & Abdominal Exam: Soft. absent: Tenderness Assessment and Plan (1) GI bleed Assessment & Plan: Esophageal ulcer treated endoscopically by Dr Villanueva Bleed appears to have resolved Advance to clear liquids and continue Protonix Check Hgb in AM Status: Acute (2) Constipation Assessment & Plan: Chronic Miralax taken as outpatient Status: Acute (3) Benign liver cyst Assessment & Plan: multiple sstable tiny cysts throughout the liver. Stable and unchanged. Discussed with patient Status: Acute
[2017-11-20 14:01] LABS: HEMOGLOBIN 9.8 g/dL (11.0-16.0)
[2017-11-20] MEDS: Dextrose 5%/0.9% NS 1,000 ML IV SCH (21:08)
[2017-11-21] MEDS: Pantoprazole 80 MG in Sodium Chloride 0.9% 100 ML IV SCH ×2 (03:32→16:59)
[2017-11-21 07:41] LABS: MEAN CELL VOLUME 86.3 fL (81.0-99.0); MEAN CORPUSCULAR HEMOGLOBIN 28.8 pg (27.0-31.0); MEAN CORPUSCULAR HGB CONC 33.4 g/dL (33.0-37.0); MEAN PLATELET VOLUME 7.5 fL (7.2-11.7); RBC 3.47 Mil/uL (3.80-5.20); RED CELL DISTRIBUTION WIDTH 14.4 % (11.5-14.5); WHITE BLOOD COUNT 5.3 K/uL (4.8-10.8)
[2017-11-21] MEDS: Metoprolol Succinate 25 mg XL Tab PO SCH (09:27)
[2017-11-21] MEDS: Rosuvastatin Calcium 2.5 mg Tab PO SCH (09:27)
[2017-11-21] MEDS: Levothyroxine 50 MCG TAB PO SCH (09:27)
--- NOTE | 2017-11-21 13:36 | CP.PCM.PN ---
Subjective - Date & Time of Evaluation Date of Evaluation: 11/21/17 Time of Evaluation: 12:45 - Subjective Subjective: F/u GI bleed. No bleeding Denies abd pain, RB, melena, fever, chills. SZ, LOC, PATRICK, CP Objective - Vital Signs/Intake and Output Vital Signs (last 24 hours): Temp Pulse Resp BP Pulse Ox 97.9 F 60 20 150/94 H 97 11/21/17 07:00 11/21/17 07:50 11/21/17 07:00 11/21/17 07:00 11/21/17 07:00 Intake and Output: 11/21/17 11/21/17 06:59 18:59 Intake Total 2650 Balance 2650 - Medications Medications: Current Medications Acetaminophen (Tylenol 325mg Tab) 650 mg PO Q6 PRN PRN Reason: Fever >100.4 F or pain 4-7 Pantoprazole Sodium 80 mg/ (Sodium Chloride) 100 mls @ 10 mls/hr IV .Q10H [facility] PRN Reason: 8 MG/HR Last Admin: 11/21/17 03:32 Dose: 10 mls/hr Dextrose/Sodium Chloride (Dextrose 5%/0.9% Ns 1000 Ml) 1,000 mls @ 100 mls/hr IV .Q10H [facility] Last Admin: 11/20/17 21:08 Dose: 100 mls/hr Levothyroxine Sodium (Synthroid) 50 mcg PO DAILY@0630 [facility] Last Admin: 11/21/17 09:27 Dose: 50 mcg Metoprolol Succinate (Toprol Xl) 25 mg PO DAILY [facility] Last Admin: 11/21/17 09:27 Dose: 25 mg Rosuvastatin Calcium (Crestor) 2.5 mg PO DAILY [facility] Last Admin: 11/21/17 09:27 Dose: 2.5 mg - Labs Labs: 11/21/17 07:37 11/20/17 07:37 PT 13.3 SECONDS (9.7-12.2) H 11/20/17 07:37 INR 1.2 11/20/17 07:37 APTT 33 SECONDS (21-34) 11/20/17 07:37 - Constitutional Appears: Well - Neck Exam Neck Exam: absent: Tenderness - Respiratory Exam Respiratory Exam: Clear to Ausculation Bilateral - Cardiovascular Exam Cardiovascular Exam: RRR - GI/Abdominal Exam GI & Abdominal Exam: Soft, Normal Bowel Sounds. absent: Tenderness - Extremities Exam Extremities Exam: absent: Calf Tenderness - Neurological Exam Neurological Exam: Alert, Oriented x3 Assessment and Plan (1) Anemia due to blood loss, acute Status: Acute (2) Gastrointestinal hemorrhage with melena Assessment & Plan: Esoph ulcer bleed. Stable seen. s/p argon cautery. Rec- advance diet.., PPI Status: Acute (3) Abdominal pain Status: Acute (4) Achalasia of digestive tract Assessment & Plan: s/p heller. s/p esoph dilatation 1 yr ago Status: Acute (5) Cholelithiases Status: Acute
--- NOTE | 2017-11-21 15:07 | CARD ---
APPROVED REPORT Date of service: 11/19/2017 EKG Measurement Heart [id number] <Conclusion> Normal sinus rhythm Normal ECG
[2017-11-21] MEDS: Dextrose 5%/0.9% NS 1,000 ML IV SCH (17:02)
--- NOTE | 2017-11-21 17:23 | CP.PCM.PN ---
<Darion Canada - Last Filed: 11/21/17 17:24> Subjective - Date & Time of Evaluation Date of Evaluation: 11/21/17 Time of Evaluation: 07:30 - Subjective Subjective: PGY-[address] Miguel Rodney Patient seen and examined at bedside. She report no acute events overnight. She feels much better this morning. No bowel movements reported by patient, and no bloody stools. Patient denies fever, chills, dizziness, nausea or vomiting. Patient went for EGD yesterday and show bleeding ulcer with successful APC treatment. Hemoglobin has been stable during this time. Objective - Vital Signs/Intake and Output Vital Signs (last 24 hours): Temp Pulse Resp BP Pulse Ox 98.4 F 66 18 144/90 99 11/21/17 15:20 11/21/17 15:20 11/21/17 15:20 11/21/17 15:20 11/21/17 15:20 Intake and Output: 11/21/17 11/21/17 06:59 18:59 Intake Total 2650 Balance 2650 - Medications Medications: Current Medications Acetaminophen (Tylenol 325mg Tab) 650 mg PO Q6 PRN PRN Reason: Fever >100.4 F or pain 4-7 Pantoprazole Sodium 80 mg/ (Sodium Chloride) 100 mls @ 10 mls/hr IV .Q10H [facility]ERI PRN Reason: 8 MG/HR Last Admin: 11/21/17 16:59 Dose: 10 mls/hr Dextrose/Sodium Chloride (Dextrose 5%/0.9% Ns 1000 Ml) 1,000 mls @ 100 mls/hr IV .Q10H JERI Last Admin: 11/21/17 17:02 Dose: 100 mls/hr Levothyroxine Sodium (Synthroid) 50 mcg PO DAILY@0630 [facility] Last Admin: 11/21/17 09:27 Dose: 50 mcg Metoprolol Succinate (Toprol Xl) 25 mg PO DAILY [facility] Last Admin: 11/21/17 09:27 Dose: 25 mg Rosuvastatin Calcium (Crestor) 2.5 mg PO DAILY [facility] Last Admin: 11/21/17 09:27 Dose: 2.5 mg - Labs Labs: 11/21/17 07:37 11/20/17 07:37 PT 13.3 SECONDS (9.7-12.2) H 11/20/17 07:37 INR 1.2 11/20/17 07:37 APTT 33 SECONDS (21-34) 11/20/17 07:37 - Constitutional Appears: Well, Non-toxic, No Acute Distress - Head Exam Head Exam: ATRAUMATIC, NORMAL INSPECTION, NORMOCEPHALIC - Eye Exam Eye Exam: EOMI, Normal appearance - ENT Exam ENT Exam: Mucous Membranes Moist - Neck Exam Neck Exam: Full ROM, Normal Inspection - Respiratory Exam Respiratory Exam: Clear to Ausculation Bilateral, NORMAL BREATHING PATTERN. absent: Rales, Rhonchi, Wheezes - Cardiovascular Exam Cardiovascular Exam: REGULAR RHYTHM, +S1, +S2. absent: Rubs, Murmur - GI/Abdominal Exam GI & Abdominal Exam: Soft, Normal Bowel Sounds. absent: Distended, Tenderness - Extremities Exam Extremities Exam: Full ROM, Normal Inspection. absent: Tenderness - Back Exam Back Exam: NORMAL INSPECTION - Neurological Exam Neurological Exam: Alert, Oriented x3 - Psychiatric Exam Psychiatric exam: Normal Affect, Normal Mood - Skin Skin Exam: Intact, Normal Color, Warm Assessment and Plan - Assessment and Plan (Free Text) Plan: Melanotic Stools/secondary to gastric ulcer Patient does not report any new episode of melanotic stools today (11/21) Hemoglobin 11/20: 10.0 from 9.8 yesterday, stable FOBT+ CT abdomen/pelvis with IV contrast- hiatal hernia, L renal cyst, hepatic cysts GI Consult placed to Dr. Mitchell- EGD done * Bleeding esophageal ulcer. Treated with argon plasma coagulation (APC) * a Heller myotomy with exposed suture/staple anastomosis was found * Gastritis. Biopsied * Normal examined duodenum * GI recs - protonix 40mg IV daily, repeat upper endoscopy in 1 month to check healing, advance diet to clear liquids if H/H stable in am ferritin: 10.5 Type and screen completed; transfusion consent sign 1u PRB ordered- transfuse prn F/U CBC tomorrow Vitals stable, continue monitoring Syncope no new episodes of syncope Pt admits to longstanding history of syncopal episodes Vaso-vagal vs Acute hypovolemia Vitals stable, continue monitoring CT Head negative F/U am labs HTN highest blood pressure this morning, systolic was 150 Restarted patient on Metoprolol, we did not started Valsartan/HCTZ as per patient's request continue to monitor BP HLD Restarted Crestor 2.5 PO daily Hypothyroidism Started Levothyroxine 50 mcg PO daily PPX Protonix 40mg IV BID DVT ppx contraindicated Patient advanced diet from clear to full liquid diet, no red jelly Plan discussed with Dr Miguel Canada, PGY-1 <Miguel Rodney H - Last Filed: 11/21/17 18:02> Objective - Vital Signs/Intake and Output Vital Signs (last 24 hours): Temp Pulse Resp BP Pulse Ox 98.4 F 66 18 144/90 99 11/21/17 15:20 11/21/17 15:20 11/21/17 15:20 11/21/17 15:20 11/21/17 15:20 Intake and Output: 11/21/17 11/21/17 06:59 18:59 Intake Total 2650 Balance 2650 - Medications Medications: Current Medications Acetaminophen (Tylenol 325mg Tab) 650 mg PO Q6 PRN PRN Reason: Fever >100.4 F or pain 4-7 Pantoprazole Sodium 80 mg/ (Sodium Chloride) 100 mls @ 10 mls/hr IV .Q10H [facility]I PRN Reason: 8 MG/HR Last Admin: 11/21/17 16:59 Dose: 10 mls/hr Dextrose/Sodium Chloride (Dextrose 5%/0.9% Ns 1000 Ml) 1,000 mls @ 100 mls/hr IV .Q10H JERI Last Admin: 11/21/17 17:02 Dose: 100 mls/hr Levothyroxine Sodium (Synthroid) 50 mcg PO DAILY@0630 [facility] Last Admin: 11/21/17 09:27 Dose: 50 mcg Metoprolol Succinate (Toprol Xl) 25 mg PO DAILY [facility]I Last Admin: 11/21/17 09:27 Dose: 25 mg Rosuvastatin Calcium (Crestor) 2.5 mg PO DAILY [facility] Last Admin: 11/21/17 09:27 Dose: 2.5 mg - Labs Labs: 11/21/17 07:37 11/20/17 07:37 PT 13.3 SECONDS (9.7-12.2) H 11/20/17 07:37 INR 1.2 11/20/17 07:37 APTT 33 SECONDS (21-34) 11/20/17 07:37 Attending/Attestation - Attestation I have personally seen and examined this patient.: Yes I have fully participated in the care of the patient.: Yes I have reviewed all pertinent clinical information, including history, physical exam and plan: Yes Notes (Text): 11/21/17 17:58 Medical attending: Patient was seen and examined by me. Agree with the above note by the resident The patient was not in any acute distress when we saw her. She currently remains on a protonix ggt per GI. She tolerated her CLD ok, will advance diet to full liquids. Currently the Hgb is stable at this time Miguel Rodney
[2017-11-22 02:34] VITALS: RESP 20
[2017-11-22] MEDS: Dextrose 5%/0.9% NS 1,000 ML IV SCH (02:45)
[2017-11-22] MEDS: Levothyroxine 50 MCG TAB PO SCH (06:40)
[2017-11-22 08:17] VITALS: BP 157/87; TEMP 97.8; O2SAT 100
[2017-11-22 08:23] LABS: HEMOGLOBIN 9.3 g/dL (11.0-16.0); MEAN CELL VOLUME 85.3 fL (81.0-99.0); MEAN CORPUSCULAR HEMOGLOBIN 29.3 pg (27.0-31.0); MEAN CORPUSCULAR HGB CONC 34.4 g/dL (33.0-37.0); MEAN PLATELET VOLUME 7.9 fL (7.2-11.7); RBC 3.19 Mil/uL (3.80-5.20); RED CELL DISTRIBUTION WIDTH 14.2 % (11.5-14.5); WHITE BLOOD COUNT 4.9 K/uL (4.8-10.8)
[2017-11-22 08:47] VITALS: PULSE 61
[2017-11-22] MEDS: Metoprolol Succinate 25 mg XL Tab PO SCH (09:13)
[2017-11-22] MEDS: Rosuvastatin Calcium 2.5 mg Tab PO SCH (09:13)
[2017-11-22] MEDS: Pantoprazole 80 MG in Sodium Chloride 0.9% 100 ML IV SCH ×2 (09:14→09:15)
--- NOTE | 2017-11-22 10:10 | CP.PCM.PN ---
Subjective - Date & Time of Evaluation Date of Evaluation: 11/22/17 Time of Evaluation: 10:08 - Subjective Subjective: No BMs Hgb relatively stable Has not eaten solids yet Stable for discharge Objective - Vital Signs/Intake and Output Vital Signs (last 24 hours): Temp Pulse Resp BP Pulse Ox 97.8 F 61 20 157/87 H 100 11/22/17 07:00 11/22/17 08:43 11/22/17 07:00 11/22/17 07:00 11/22/17 07:00 Intake and Output: 11/22/17 11/22/17 06:59 18:59 Intake Total 380 Balance 380 - Medications Medications: Current Medications Acetaminophen (Tylenol 325mg Tab) 650 mg PO Q6 PRN PRN Reason: Fever >100.4 F or pain 4-7 Pantoprazole Sodium 80 mg/ (Sodium Chloride) 100 mls @ 10 mls/hr IV .Q10H [facility] PRN Reason: 8 MG/HR Last Admin: 11/22/17 09:15 Dose: Not Given Dextrose/Sodium Chloride (Dextrose 5%/0.9% Ns 1000 Ml) 1,000 mls @ 100 mls/hr IV .Q10H [facility] Last Admin: 11/22/17 02:45 Dose: Not Given Levothyroxine Sodium (Synthroid) 50 mcg PO DAILY@0630 [facility] Last Admin: 11/22/17 06:40 Dose: 50 mcg Metoprolol Succinate (Toprol Xl) 25 mg PO DAILY [facility] Last Admin: 11/22/17 09:13 Dose: 25 mg Rosuvastatin Calcium (Crestor) 2.5 mg PO DAILY [facility] Last Admin: 11/22/17 09:13 Dose: 2.5 mg - Labs Labs: 11/22/17 08:11 11/20/17 07:37 PT 13.3 SECONDS (9.7-12.2) H 11/20/17 07:37 INR 1.2 11/20/17 07:37 APTT 33 SECONDS (21-34) 11/20/17 07:37 - Constitutional Appears: Well - Respiratory Exam Respiratory Exam: NORMAL BREATHING PATTERN - Cardiovascular Exam Cardiovascular Exam: REGULAR RHYTHM - GI/Abdominal Exam GI & Abdominal Exam: Soft. absent: Tenderness Assessment and Plan (1) GI bleed Assessment & Plan: Stable May discharge on oral Protonix, soft diet. F/U in my office in 1-2 weeks D/W pt and medical attending Status: Acute (2) Constipation Status: Acute (3) Benign liver cyst Status: Acute
--- NOTE | 2017-11-22 15:03 | CP.PCM.DIS ---
<Darion Canada - Last Filed: 11/22/17 14:58> Provider - Provider Date of Admission: 11/19/17 14:06 Attending physician: Miguel Rodney DO Consults: Dr Isabel, Dr Mitchell, Dr Stephen Time Spent in preparation of Discharge (in minutes): 45 Diagnosis - Discharge Diagnosis (1) Gastrointestinal hemorrhage with melena Status: Acute Priority: High Comment: Patient came on 11/19 secondary to dark stools for one day. She has a history of achalasia, strictures and Gastrointestinal bleed, s/p myomotomy 2000. Patient received 1 unit PRBC, EGD had APC on bleeding esophageal ulcer. Patient given protonix drip for several days, diet was advanced succesfully. Hospital Course - Lab Results Lab Results: Most Recent Lab Values WBC 4.9 K/uL (4.8-10.8) 11/22/17 08:11 RBC 3.19 Mil/uL (3.80-5.20) L 11/22/17 08:11 Hgb 9.3 g/dL (11.0-16.0) L 11/22/17 08:11 Hct 27.2 % (34.0-47.0) L 11/22/17 08:11 MCV 85.3 fL (81.0-99.0) 11/22/17 08:11 MCH 29.3 pg (27.0-31.0) 11/22/17 08:11 MCHC 34.4 g/dL (33.0-37.0) 11/22/17 08:11 RDW 14.2 % (11.5-14.5) 11/22/17 08:11 Plt Count 280 K/uL (130-400) 11/22/17 08:11 MPV 7.9 fL (7.2-11.7) 11/22/17 08:11 Neut % (Auto) 63.3 % (50.0-75.0) 11/20/17 14:00 Lymph % (Auto) 26.5 % (20.0-40.0) 11/20/17 14:00 [place] % (Auto) 8.6 % (0.0-10.0) 11/20/17 14:00 Eos % (Auto) 1.0 % (0.0-4.0) 11/20/17 14:00 Baso % (Auto) 0.6 % (0.0-2.0) 11/20/17 14:00 Neut # (Auto) 4.1 K/uL (1.8-7.0) 11/20/17 14:00 Lymph # (Auto) 1.7 K/uL (1.0-4.3) 11/20/17 14:00 [place] # (Auto) 0.6 K/uL (0.0-0.8) 11/20/17 14:00 Eos # (Auto) 0.1 K/uL (0.0-0.7) 11/20/17 14:00 Baso # (Auto) 0.0 K/uL (0.0-0.2) 11/20/17 14:00 Retic Count 2.2 % (0.5-1.5) H 11/19/17 16:02 PT 13.3 SECONDS (9.7-12.2) H 11/20/17 07:37 INR 1.2 11/20/17 07:37 APTT 33 SECONDS (21-34) 11/20/17 07:37 Sodium 145 mmol/L (132-148) 11/20/17 07:37 Potassium 4.1 mmol/L (3.6-5.2) 11/20/17 07:37 Chloride 110 mmol/L (98-107) H 11/20/17 07:37 Carbon Dioxide 26 mmol/L (22-30) 11/20/17 07:37 Anion Gap 14 (10-20) 11/20/17 07:37 BUN 13 mg/dL (7-17) 11/20/17 07:37 Creatinine 0.7 mg/dL (0.7-1.2) 11/20/17 07:37 Est GFR ( Amer) > 60 11/20/17 07:37 Est GFR (Non-Af Amer) > 60 11/20/17 07:37 POC Glucose (mg/dL) 108 mg/dL (65-110) 11/19/17 11:45 Random Glucose 100 mg/dL (65-105) 11/20/17 07:37 Calcium 8.5 mg/dl (8.6-10.4) L 11/20/17 07:37 Ferritin 10.5 ng/mL 11/19/17 16:02 Total Bilirubin 0.3 mg/dL (0.2-1.3) 11/20/17 07:37 AST 22 U/L (14-36) 11/20/17 07:37 ALT 32 U/L (9-52) 11/20/17 07:37 Alkaline Phosphatase 61 U/L (38-126) 11/20/17 07:37 Total Protein 6.2 g/dL (6.3-8.3) L 11/20/17 07:37 Albumin 3.5 g/dL (3.5-5.0) 11/20/17 07:37 Globulin 2.7 gm/dL (2.2-3.9) 11/20/17 07:37 Albumin/Globulin Ratio 1.3 (1.0-2.1) 11/20/17 07:37 Urine Color Straw (YELLOW) 11/19/17 12:25 Urine Clarity Clear (Clear) 11/19/17 12:25 Urine pH 6.0 (5.0-8.0) 11/19/17 12:25 Ur Specific [place] 1.018 (1.003-1.030) 11/19/17 12:25 Urine Protein Negative mg/dL (NEGATIVE) 11/19/17 12:25 Urine Glucose (UA) Normal mg/dL (Normal) 11/19/17 12:25 Urine Ketones Negative mg/dL (NEGATIVE) 11/19/17 12:25 Urine Blood Negative (NEGATIVE) 11/19/17 12:25 Urine Nitrate Negative (NEGATIVE) 11/19/17 12:25 Urine Bilirubin Negative (NEGATIVE) 11/19/17 12:25 Urine Urobilinogen Normal mg/dL (0.2-1.0) 11/19/17 12:25 Ur Leukocyte Esterase Neg Cole/uL (Negative) 11/19/17 12:25 Urine WBC (Auto) 1 /hpf (0-5) 11/19/17 12:25 Urine RBC (Auto) < 1 /hpf (0-3) 11/19/17 12:25 Stool Occult Blood Positive (NEGATIVE) H 11/19/17 12:13 Blood Type A POSITIVE 11/19/17 12:13 Antibody Screen Negative 11/19/17 12:13 - Hospital Course Hospital Course: This is a 52 year old female with a hx of achalasia s/p myotomy 2000 and balloon dilatation in 2016, HTN, HLD, Hypothyroidism and GIB presenting to the ED with concern of dark stools for 1 day. She woke from sleep this morning went to the bathroom and had 4 episodes of dark, tarry, loose stools. She states that after the final bowel movement she passed out on the toilet bowl, in the seated position. She is unsure how long she was unconscious for but when she came to she was still seated on the toilet and had not fallen. She called for her to come look at the stool, he is at bedside now and confirms that it appeared dark and loose. She was brought to the ED by her for further evaluation. She denies dizziness, nausea, vomiting, chest pain, shortness of breath, weakness, numbness, tingling. She has not had any more bowel movements since this morning. Of note, this patient has a hx of achalasia and underwent myotomy at [facility] in 2008. She subsequently had a GIB in 2012 from this surgical site. In 2016 she has balloon dilatation of her esophagus for strictures. At that time she required 4 units of blood. She follows with Dr. Mitchell and was scheduled for her next EGD in November 2017. Her last colonoscopy 06/23/17, last endoscopy 03/15/18. This patient also admits to a history of syncopal episodes from the time she was "very young." It is unclear whether these episodes are vaso-vagal/otherwise provoked. She has had several episodes while on the toilet but she denies straining. Patient came on 11/19 secondary to dark stools for one day. She has a history of achalasia, strictures and Gastrointestinal bleed, s/p myomotomy 2000. Patient received 1 unit PRBC, EGD had APC on bleeding esophageal ulcer. Patient given protonix drip for several days, diet was advanced succesfully. For patient 's history of HTN, home meds were restarted, with the exception of Valsartan/ HCTZ. Toprol XL was restarted. For her hypothryroidsm, patient was restarted on her home med synthroid. for her history of hyperlipidemia, patient was restarted on Crestor. Patient is stable to discharge to home by Dr Miguel Rodney and Dr Waldo Mitchell. Patient will follow up with Primary health Dr Fink within 10 days. Patient to follow up with GI Dr. Mitchell/ Dr Isabel within 10 days. Patient to continue soft diets at home. Please take the new medications given to you at hospital: Protonix 40mg 1 tablet per mouth daily and hydrochlorithiazide 25mg 1 tablet per mouth daily. Patient to continue her home medications as indicated: Synthroid 50mcg 1 tab per mouth daily, toprol XL 25mg 1 tab per mouth daily, Crestor 2.5mg 1 tab per mouth daily. if symptoms worsen or come back, please return to the ER. This is a short summary of patient's hospital course. For more information, please see patient's EMR. - Date & Time of H&P Date of H&P: 11/22/17 Time of H&P: 07:15 Discharge Exam - Head Exam Head Exam: ATRAUMATIC, NORMAL INSPECTION, NORMOCEPHALIC - Eye Exam Eye Exam: EOMI, Normal appearance - ENT Exam ENT Exam: Mucous Membranes Moist - Neck Exam Neck exam: Full Rom - Respiratory Exam Respiratory Exam: Clear to PA & Lateral, NORMAL BREATHING PATTERN - Cardiovascular Exam Cardiovascular Exam: REGULAR RHYTHM, +S1, +S2 - GI/Abdominal Exam GI & Abdominal Exam: Normal Bowel Sounds, Unremarkable. absent: Distended, Guarding, Tenderness - Extremities Exam Extremities exam: full ROM - Back Exam Back exam: NORMAL INSPECTION - Neurological Exam Neurological exam: Alert, CN II-XII Intact, Normal Gait, Oriented x3 - Psychiatric Exam Psychiatric exam: Normal Affect, Normal Mood - Skin Skin Exam: Intact, Normal Color, Warm Discharge Plan - Discharge Medications Prescriptions: hydroCHLOROthiazide [Hydrodiuril] 25 mg PO DAILY #30 tab Pantoprazole [Protonix EC Tab] 40 mg PO DAILY #30 ect - Follow Up Plan Condition: STABLE Disposition: HOME/ ROUTINE Instructions: Gastrointestinal Bleeding (DC), Gastritis (DC), Syncope (Fainting ) (DC), Upper GI Endoscopy (DC), Hydrochlorothiazide, Pantoprazole Additional Instructions: Patient is stable to discharge to home by Dr Miguel Rodney and Dr Waldo Mitchell. Patient will follow up with Primary health Dr Fink within 10 days. Patient to follow up with GI Dr. Mitchell/ Dr Isabel within 10 days. Patient to continue soft diets at home. Please take the new medications given to you at hospital: Protonix 40mg 1 tablet per mouth daily and hydrochlorithiazide 25mg 1 tablet per mouth daily. Patient to continue her home medications as indicated: Synthroid 50mcg 1 tab per mouth daily, toprol XL 25mg 1 tab per mouth daily, Crestor 2.5mg 1 tab per mouth daily. if symptoms worsen or come back, please return to the ER. Referrals: Waldo Mitchell MD [Staff Provider] - <Miguel Rodney - Last Filed: 11/22/17 16:01> Provider - Provider Date of Admission: 11/19/17 14:06 Attending physician: Miguel Rodney DO Hospital Course - Lab Results Lab Results: Most Recent Lab Values WBC 4.9 K/uL (4.8-10.8) 11/22/17 08:11 RBC 3.19 Mil/uL (3.80-5.20) L 11/22/17 08:11 Hgb 9.3 g/dL (11.0-16.0) L 11/22/17 08:11 Hct 27.2 % (34.0-47.0) L 11/22/17 08:11 MCV 85.3 fL (81.0-99.0) 11/22/17 08:11 MCH 29.3 pg (27.0-31.0) 11/22/17 08:11 MCHC 34.4 g/dL (33.0-37.0) 11/22/17 08:11 RDW 14.2 % (11.5-14.5) 11/22/17 08:11 Plt Count 280 K/uL (130-400) 11/22/17 08:11 MPV 7.9 fL (7.2-11.7) 11/22/17 08:11 Neut % (Auto) 63.3 % (50.0-75.0) 11/20/17 14:00 Lymph % (Auto) 26.5 % (20.0-40.0) 11/20/17 14:00 [place] % (Auto) 8.6 % (0.0-10.0) 11/20/17 14:00 Eos % (Auto) 1.0 % (0.0-4.0) 11/20/17 14:00 Baso % (Auto) 0.6 % (0.0-2.0) 11/20/17 14:00 Neut # (Auto) 4.1 K/uL (1.8-7.0) 11/20/17 14:00 Lymph # (Auto) 1.7 K/uL (1.0-4.3) 11/20/17 14:00 [place] # (Auto) 0.6 K/uL (0.0-0.8) 11/20/17 14:00 Eos # (Auto) 0.1 K/uL (0.0-0.7) 11/20/17 14:00 Baso # (Auto) 0.0 K/uL (0.0-0.2) 11/20/17 14:00 Retic Count 2.2 % (0.5-1.5) H 11/19/17 16:02 PT 13.3 SECONDS (9.7-12.2) H 11/20/17 07:37 INR 1.2 11/20/17 07:37 APTT 33 SECONDS (21-34) 11/20/17 07:37 Sodium 145 mmol/L (132-148) 11/20/17 07:37 Potassium 4.1 mmol/L (3.6-5.2) 11/20/17 07:37 Chloride 110 mmol/L (98-107) H 11/20/17 07:37 Carbon Dioxide 26 mmol/L (22-30) 11/20/17 07:37 Anion Gap 14 (10-20) 11/20/17 07:37 BUN 13 mg/dL (7-17) 11/20/17 07:37 Creatinine 0.7 mg/dL (0.7-1.2) 11/20/17 07:37 Est GFR ( Amer) > 60 11/20/17 07:37 Est GFR (Non-Af Amer) > 60 11/20/17 07:37 POC Glucose (mg/dL) 108 mg/dL (65-110) 11/19/17 11:45 Random Glucose 100 mg/dL (65-105) 11/20/17 07:37 Calcium 8.5 mg/dl (8.6-10.4) L 11/20/17 07:37 Ferritin 10.5 ng/mL 11/19/17 16:02 Total Bilirubin 0.3 mg/dL (0.2-1.3) 11/20/17 07:37 AST 22 U/L (14-36) 11/20/17 07:37 ALT 32 U/L (9-52) 11/20/17 07:37 Alkaline Phosphatase 61 U/L (38-126) 11/20/17 07:37 Total Protein 6.2 g/dL (6.3-8.3) L 11/20/17 07:37 Albumin 3.5 g/dL (3.5-5.0) 11/20/17 07:37 Globulin 2.7 gm/dL (2.2-3.9) 11/20/17 07:37 Albumin/Globulin Ratio 1.3 (1.0-2.1) 11/20/17 07:37 Urine Color Straw (YELLOW) 11/19/17 12:25 Urine Clarity Clear (Clear) 11/19/17 12:25 Urine pH 6.0 (5.0-8.0) 11/19/17 12:25 Ur Specific [place] 1.018 (1.003-1.030) 11/19/17 12:25 Urine Protein Negative mg/dL (NEGATIVE) 11/19/17 12:25 Urine Glucose (UA) Normal mg/dL (Normal) 11/19/17 12:25 Urine Ketones Negative mg/dL (NEGATIVE) 11/19/17 12:25 Urine Blood Negative (NEGATIVE) 11/19/17 12:25 Urine Nitrate Negative (NEGATIVE) 11/19/17 12:25 Urine Bilirubin Negative (NEGATIVE) 11/19/17 12:25 Urine Urobilinogen Normal mg/dL (0.2-1.0) 11/19/17 12:25 Ur Leukocyte Esterase Neg Cole/uL (Negative) 11/19/17 12:25 Urine WBC (Auto) 1 /hpf (0-5) 11/19/17 12:25 Urine RBC (Auto) < 1 /hpf (0-3) 11/19/17 12:25 Stool Occult Blood Positive (NEGATIVE) H 11/19/17 12:13 Blood Type A POSITIVE 11/19/17 12:13 Antibody Screen Negative 11/19/17 12:13 Attending/Attestation - Attestation I have personally seen and examined this patient.: Yes I have fully participated in the care of the patient.: Yes I have reviewed all pertinent clinical information, including history, physical exam and plan: Yes Notes (Text): 11/22/17 15:48 Medical attending: Patient was seen and examined by me. Agree with the above note by the resident. The patient reported no acute events overnight. The patient tolerated full lquid diet. Did not report any blood or dark color stools, denied abdominal pain The patient will need to continue to take protonix and also will need future follow up with AIDA Rodney
[2017-11-23] MEDS ORDERED: Pantoprazole 40 mg EC Tab PO SCH (10:00)
== END 2017-11-22 13:07 | disposition home or self-care (01) | DRG 176 ==
LOC: C.ER 11:23 → C.9E 14:06 → C.6T 14:15
PROVIDERS: ADMIT Hospitalist; ATTEND Hospitalist
PROC: 30233N1 Transfusion of Nonautologous Red Blood Cells into Peripheral Vein, Percutaneous Approach (ICD-10-PCS; 2017-11-19)
PROC: 0W3P8ZZ Control Bleeding in Gastrointestinal Tract, Via Natural or Artificial Opening Endoscopic (ICD-10-PCS; principal; 2017-11-19 17:45)
DX: K22.11 Ulcer of esophagus with bleeding (principal); D62 Acute posthemorrhagic anemia; E11.22 Type 2 diabetes mellitus with diabetic chronic kidney disease; N18.9 Chronic kidney disease, unspecified; E86.1 Hypovolemia; E03.9 Hypothyroidism, unspecified; K21.9 Gastro-esophageal reflux disease without esophagitis; E78.00 Pure hypercholesterolemia, unspecified; I12.9 Hypertensive chronic kidney disease with stage 1 through stage 4 chronic kidney disease, or unspecified chronic kidney disease; K59.09 Other constipation; Z85.43 Personal history of malignant neoplasm of ovary; Z86.73 Personal history of transient ischemic attack (TIA), and cerebral infarction without residual deficits

== ENCOUNTER 2018-03-17 10:11 | Emergency (ER) | payer MEDICAID ==
[2018-03-17 10:12] VITALS: BMI 34.3
[2018-03-17 11:34] LABS: BASO % 0.5 % (0.0-2.0); EOS # 0.1 K/uL (0.0-0.7); EOS % 1.2 % (0.0-4.0); HEMOGLOBIN 10.7 g/dL (11.0-16.0); LYMPH # 1.2 K/uL (1.0-4.3); LYMPH % 22.2 % (20.0-40.0); MEAN CELL VOLUME 76.7 fL (81.0-99.0); MEAN CORPUSCULAR HEMOGLOBIN 25.4 pg (27.0-31.0); MEAN CORPUSCULAR HGB CONC 33.2 g/dL (33.0-37.0); MEAN PLATELET VOLUME 7.4 fL (7.2-11.7); MONO # 0.5 K/uL (0.0-0.8); MONO % 8.5 % (0.0-10.0); NEUT # 3.6 K/uL (1.8-7.0); NEUT % 67.6 % (50.0-75.0); RBC 4.2 Mil/uL (3.80-5.20); RED CELL DISTRIBUTION WIDTH 15.4 % (11.5-14.5); WHITE BLOOD COUNT 5.3 K/uL (4.8-10.8)
--- NOTE | 2018-03-17 11:39 | C.PDOC ---
History Of Present Illness 53 y/o female with history of HTN, hypercholesterolemia, hx of anemia and s/p blood transfusion 2 yrs ago, comes in for evaluation of "abnormal bloodwork and needs additional studies". Patient states, went to see her PMD 2 days ago for medication renew, when had routine blood work done at an outpatient clinic. Pt sts, " was called today, told need some additional study done", pt denies PMD mentioned ED referral. Otherwise, patient denies any active current physical complaints. Ambulate to Ed for evaluation, not in any apparent distress. Time Seen by Provider: 03/17/18 10:41 Chief Complaint (Nursing): Abnormal Labs History Per: Patient History/Exam Limitations: no limitations Onset/Duration Of Symptoms: Days Current Symptoms Are (Timing): Still Present Past Medical History Reviewed: Historical Data, Nursing Documentation, Vital Signs Vital Signs: Last Vital Signs Temp 98.1 F 03/17/18 10:17 Pulse 66 03/17/18 10:17 Resp 16 03/17/18 10:17 BP 188/92 H 03/17/18 10:17 Pulse Ox 98 03/17/18 10:17 - Medical History PMH: Anxiety, Gastritis, Gall Bladder Disease, HTN, Hypercholesterolemia, Hyperlipidemia, Hypothyroidism, Kidney Stones (NOT PASSED, NEEDS FURTHER EVAL), Malignancy (ovarian), Chronic Kidney Disease Denies: Colonic Polyps, Crohn's Disease, Diverticulitis, Fractures, HIV, Pancreatitis, Sleep Apnea Surgical History: Cholecystectomy, Endoscopy (ESOPHAGEAL DILATION), - [facility] Procedures COLONOSCOPY (11/25/13) CONTROL BLEEDING IN GASTROINTESTINAL TRACT, ENDO (11/19/17) ESOPHAGEAL DILATION (06/04/14) ESOPHAGOGASTRODUODENOSCOPY [EGD] W/CLOSED BIOPSY (06/04/14) TRANSFUSE NONAUT RED BLOOD CELLS IN PERIPH VEIN, PERC (11/19/17) Family History: States: No Known Family Hx, Diabetes - Social History Hx Tobacco Use: No Hx Alcohol Use: No Hx Substance Use: No - Immunization History Hx Tetanus Toxoid Vaccination: No Hx Influenza Vaccination: No Hx Pneumococcal Vaccination: No Review Of Systems Except As Marked, All Systems Reviewed And Found Negative. Constitutional: Negative for: Fever, Chills Cardiovascular: Negative for: Chest Pain Respiratory: Negative for: Shortness of Breath Gastrointestinal: Negative for: Nausea, Vomiting, Diarrhea Physical Exam - Physical Exam Appears: Well, Non-toxic, No Acute Distress Skin: Normal Color, Warm, Dry, No Rash Head: Normacephalic Eye(s): bilateral: PERRL Nose: No Flaring, No Discharge Oral Mucosa: Moist Neck: Trachea Midline, No Midline Cervical Tenderness, No Paracervical Tenderness, Supple Chest: Symmetrical, No Deformity, No Tenderness Cardiovascular: Rhythm Regular, No Murmur, No JVD, Other ((-) carotid bruits B/L) Respiratory: No Rales, No Rhonchi, No Wheezing Gastrointestinal/Abdominal: Soft, No Tenderness, No Distention, No Guarding Back: No CVA Tenderness Extremity: Normal ROM, No Pedal Edema, No Swelling Neurological/Psych: Oriented x3, Normal Speech, Normal Motor, Normal Sensation ED Course And Treatment - Laboratory Results Result Diagrams: 03/17/18 11:29 03/17/18 11:29 Lab Interpretation: No Changes Compared To Prior Results O2 Sat by Pulse Oximetry: 98 (RA) Pulse Ox Interpretation: Normal Progress Note: Bloodwork and urinalysis ordered. Pt was OBS in ED for 2 hours a nd remained stable, asymptomatic during the ED evaluation. On re-eval, pt is afebrile, hemodynamicay stable. Non-toxic, tolerate PO well in ED. Neck: SUpple, (-) JVD, (-) carotid bruits B/L. Lungs: CTA B/L, BS equal B/L. CVS: (+)S1S2, reg. (-) murmur. Abd: Benign, (-) guarding, (-) rebound, (-) localized tenderness. Neurologicaly inatct. Blood work review and appears baseline, anemia with H/H appears stable compare to previous visits. no evidece of dehydration. Results review and discussed with pt. Pt advised and ref. to F/U with PMD in 2-3 days for re-eval. return if any new chnages. On triage, noted elevaited BP, pt admitted did not take her BP medictaion yet. remained asympto matic. Pt advised to take her BP med at home LUCIANA anfd monitor BP at home. Pt agrees with plan. Disposition Counseled Patient/Family Regarding: Studies Performed, Diagnosis, Need For Followup - Disposition Referrals: Israel Arvizu MD [Medical Doctor] - Disposition: HOME/ ROUTINE Disposition Time: 12:11 Condition: STABLE Additional Instructions: Follow up with PMD for further evaluation of anemia return if any new changes. Instructions: Anemia of Chronic Disease Forms: [facility] [facility] (German) - Clinical Impression Clinical Impression: Anemia - PA / CASH MANAGEMENT ASSOCIATE / Resident Statement MD/DO has reviewed & agrees with the documentation as recorded. - Scribe Statement The provider has reviewed the documentation as recorded by the Scribe Radha Crooks All medical record entries made by the Ingaibthalia were at my direction and personally dictated by me. I have reviewed the chart and agree that the record accurately reflects my personal performance of the history, physical exam, medical decision making, and the department course for this patient. I have also personally directed, reviewed, and agree with the discharge instructions and disposition.
[2018-03-17 11:50] LABS: ALB/GLOB RATIO 1.4 (1.0-2.1); ALBUMIN 4.7 g/dL (3.5-5.0); ALT/SGPT 43 U/L (9-52); AST/SGOT 35 U/L (14-36); BLOOD UREA NITROGEN 21 mg/dL (7-17); CALCIUM 9.3 mg/dl (8.6-10.4); GFR NON-AFRICAN AMERICAN > 60
[2018-03-17 11:55] LABS: INR 1.2
[2018-03-17 11:57] LABS: URINE BILIRUBIN NEGATIVE (NEGATIVE); URINE BLOOD 1+ (NEGATIVE); URINE CLARITY Clear (Clear); URINE COLOR Yellow (YELLOW); URINE GLUCOSE (UA) NORMAL (Normal); URINE PROTEIN NEGATIVE (NEGATIVE)
[2018-03-17 11:58] LABS: SQUAMOUS EPITHIAL 1 /hpf (0-5); URINE LEUKOCYTE ESTERASE NEG Leu/uL (Negative); URINE UROBILINOGEN NORMAL mg/dL (0.2-1.0)
[2018-03-17 12:40] VITALS: BP 165/101; PULSE 62; RESP 18; TEMP 98.3
[2018-03-17 18:30] VITALS: O2SAT 98
== END 2018-03-17 13:11 | disposition home or self-care (01) ==
LOC: C.ER 10:11
DX: D64.9 Anemia, unspecified (principal)

== ENCOUNTER 2018-04-02 10:39 | Emergency (ER) | payer MEDICAID ==
[2018-04-02 10:39] VITALS: BMI 34.3
[2018-04-02 11:32] LABS: BASO % 0.7 % (0.0-2.0); EOS # 0.1 K/uL (0.0-0.7); EOS % 1.2 % (0.0-4.0); HEMOGLOBIN 10.4 g/dL (11.0-16.0); LYMPH # 1.4 K/uL (1.0-4.3); LYMPH % 24.7 % (20.0-40.0); MEAN CELL VOLUME 77.1 fL (81.0-99.0); MEAN CORPUSCULAR HEMOGLOBIN 25.2 pg (27.0-31.0); MEAN CORPUSCULAR HGB CONC 32.7 g/dL (33.0-37.0); MEAN PLATELET VOLUME 7.8 fL (7.2-11.7); MONO # 0.5 K/uL (0.0-0.8); NEUT # 3.7 K/uL (1.8-7.0); NEUT % 64.4 % (50.0-75.0); NRBC % 0.1 % (0.0-2.0); RBC 4.13 Mil/uL (3.80-5.20); RED CELL DISTRIBUTION WIDTH 15.7 % (11.5-14.5); WHITE BLOOD COUNT 5.8 K/uL (4.8-10.8)
[2018-04-02 12:00] LABS: ALB/GLOB RATIO 1.3 (1.0-2.1); ALBUMIN 4.7 g/dL (3.5-5.0); ALT/SGPT 30 U/L (9-52); AST/SGOT 30 U/L (14-36); BLOOD UREA NITROGEN 21 mg/dL (7-17); CALCIUM 9.6 mg/dl (8.6-10.4); GFR NON-AFRICAN AMERICAN > 60; LIPASE 126 U/L (23-300)
[2018-04-02 12:25] VITALS: BP 155/90; PULSE 70; RESP 16; TEMP 98.4; O2SAT 95
--- NOTE | 2018-04-02 15:14 | C.PDOC ---
History Of Present Illness 53 y/o female presents to ED with c/o intermittent abdominal pain for 1 week associated with 1 episode of dark stool. Patient states she had recent endoscopy and colonoscopy. Patient reports she started iron supplements 3 days ago and currently denies nausea, vomiting, hematuria, dysuria, back pain, recent travel or any other complaints at this time. Time Seen by Provider: 04/02/18 10:51 Chief Complaint (Nursing): Abdominal Pain History Per: Patient History/Exam Limitations: no limitations Onset/Duration Of Symptoms: Days Current Symptoms Are (Timing): Still Present Past Medical History Reviewed: Historical Data, Nursing Documentation, Vital Signs Vital Signs: Last Vital Signs Temp 98.4 F 04/02/18 12:25 Pulse 70 04/02/18 12:25 Resp 16 04/02/18 12:25 BP 155/90 H 04/02/18 12:25 Pulse Ox 95 04/02/18 12:25 - Medical History PMH: Anxiety, Gastritis, Gall Bladder Disease, HTN, Hypercholesterolemia, Hyperlipidemia, Hypothyroidism, Kidney Stones (NOT PASSED, NEEDS FURTHER EVAL), Malignancy (ovarian), Chronic Kidney Disease Surgical History: Cholecystectomy, Endoscopy (ESOPHAGEAL DILATION), - [facility] Procedures COLONOSCOPY (11/25/13) CONTROL BLEEDING IN GASTROINTESTINAL TRACT, ENDO (11/19/17) ESOPHAGEAL DILATION (06/04/14) ESOPHAGOGASTRODUODENOSCOPY [EGD] W/CLOSED BIOPSY (06/04/14) TRANSFUSE NONAUT RED BLOOD CELLS IN PERIPH VEIN, PERC (11/19/17) Family History: States: Diabetes - Social History Hx Tobacco Use: No Hx Alcohol Use: No Hx Substance Use: No - Immunization History Hx Tetanus Toxoid Vaccination: No Hx Influenza Vaccination: No Hx Pneumococcal Vaccination: No Review Of Systems Constitutional: Negative for: Fever, Chills Gastrointestinal: Positive for: Abdominal Pain. Negative for: Nausea, Vomiting, Diarrhea Genitourinary: Negative for: Dysuria, Hematuria Musculoskeletal: Negative for: Back Pain Physical Exam - Physical Exam Appears: Non-toxic, No Acute Distress Skin: Warm, Dry, No Rash Head: Atraumatic, Normacephalic Eye(s): bilateral: Normal Inspection Oral Mucosa: Moist Neck: Normal ROM, Supple Cardiovascular: Rhythm Regular Respiratory: Normal Breath Sounds, No Rales, No Rhonchi, No Wheezing Gastrointestinal/Abdominal: Soft, No Tenderness, No Guarding, No Rebound Back: No CVA Tenderness Neurological/Psych: Oriented x3, Normal Speech, Normal Cognition ED Course And Treatment - Laboratory Results Result Diagrams: 04/02/18 11:26 04/02/18 11:26 O2 Sat by Pulse Oximetry: 95 (RA) Pulse Ox Interpretation: Normal Progress Note: Patient discharged and will follow up with GI and PMD in 1-2 days. Disposition - Disposition Referrals: Amy Arcos, [Non-Staff] - Disposition: HOME/ ROUTINE Disposition Time: 12:05 Condition: GOOD Additional Instructions: HEBER BEST, thank you for letting us take care of you today. The emergency medical care you received today was directed at your acute symptoms. If you were prescribed any medication, please fill it and take as directed. It may take several days for your symptoms to resolve. Return to the Emergency Department if your symptoms worsen, do not improve, or if you have any other problems. Please contact your doctor or call one of the physicians/clinics you have been referred to that are listed on the Patient Visit Information form that is included in your discharge packet. Bring any paperwork you were given at discharge with you along with any medications you are taking to your follow up visit. Our treatment cannot replace ongoing medical care by a primary care provider outside of the emergency department. Thank you for allowing the [facility] team to be part of your care today. Drink plenty of water and fiber. Continue taking your iron medication. Follow up with your GI and primary care doctor this week for re-evaluation and further management. Instructions: Anemia Caused by Low Iron Forms: [employer] (Mexican), Work Excuse - Clinical Impression Clinical Impression: Iron (Fe) deficiency anemia - Scribe Statement The provider has reviewed the documentation as recorded by the Ingaibthalia Wright All medical record entries made by the Ingaibe were at my direction and personally dictated by me. I have reviewed the chart and agree that the record accurately reflects my personal performance of the history, physical exam, medical decision making, and the department course for this patient. I have also personally directed, reviewed, and agree with the discharge instructions and disposition.
== END 2018-04-02 12:54 | disposition home or self-care (01) ==
LOC: C.ER 10:39
DX: D50.9 Iron deficiency anemia, unspecified (principal)

== ENCOUNTER 2018-04-11 07:53 | Day surgery (SDC) | payer MEDICAID ==
[2018-04-11 08:23] VITALS: BMI 33.5
[2018-04-11 09:12] VITALS: TEMP 96.7
[2018-04-11] MEDS ORDERED: Lactated Ringer's 500 ML IV ONE ×2 (10:24)
[2018-04-11] MEDS ORDERED: Midazolam 2 MG/2 ML VIAL ONE (10:28)
[2018-04-11] MEDS ORDERED: Propofol 10 mg/ml Inj (20 ML) ONE (10:28)
--- NOTE | 2018-04-11 10:59 | CP.SDSHP ---
Same Day Surgery H & P - History Proposed Procedure: EGD Pre-Op Diagnosis: Anemia, h/o esophageal ulcer - Previous Medical/Surgical History Cardiac: Hypertension Endocrine/Metabolic: Thyroid Disease Previous Surgical History: heller myotomy - Allergies Allergies: Allergies ORANGE Allergy (Intermediate, Verified 04/11/18 08:22) RASH pear Allergy (Intermediate, Verified 04/11/18 08:22) RASH strawberry Allergy (Intermediate, Verified 04/11/18 08:22) RASH APPLE Allergy (Severe, Uncoded 04/11/18 08:22) SWELLING fruit Allergy (Severe, Uncoded 04/11/18 08:22) SWELLING - Current Medications Current Medications: reviewed - Physical Exam General Appearance: wdwn nad Vital Signs: Vital Signs 04/11/18 08:51 Temperature 96.7 F L Pulse Rate 73 Respiratory 20 Rate Blood Pressure 158/97 H O2 Sat by Pulse 97 Oximetry Mental Status: Alert & Oriented x3 Heart: WNL Lungs: WNL GI: WNL - {Optional Preform as Required} Abdomen: WNL - Impression Impression: anemia Pt. Evaluated Today:Candidate for Anesthesia & Procedure: Yes - Date & Time Date: 04/11/18 Time: 10:59 Short Stay Discharge - Short Stay Discharge Admitting Diagnosis/Reason for Visit: ANEMIA Disposition: HOME/ ROUTINE
[2018-04-11] MEDS ORDERED: Lactated Ringer's 500 ML IV SCH (11:00)
[2018-04-11 12:56] VITALS: O2SAT 99
[2018-04-11 12:59] VITALS: RESP 17
[2018-04-11 13:18] VITALS: BP 168/95; PULSE 73
== END 2018-04-11 13:00 | disposition home or self-care (01) ==
LOC: C.ENDO 07:53
PROVIDERS: ATTEND Internal Medicine Gastroenterology
DX: K22.10 Ulcer of esophagus without bleeding (principal); D64.9 Anemia, unspecified
CPT/HCPCS: 43235; J2250; J2704; J7120

== ENCOUNTER 2018-04-18 07:45 | Day surgery (SDC) | payer MEDICAID ==
[2018-04-18 08:34] VITALS: PULSE 65; RESP 19; TEMP 97.6; O2SAT 98
[2018-04-18] MEDS ORDERED: Lactated Ringer's 1,000 ML IV ONE (11:10)
[2018-04-18] MEDS ORDERED: Propofol 10 mg/ml Inj (20 ML) ONE ×2 (11:14→11:23)
--- NOTE | 2018-04-18 11:15 | CP.SDSHP ---
Same Day Surgery H & P - History Proposed Procedure: colonoscopy Pre-Op Diagnosis: anemia - Previous Medical/Surgical History Cardiac: Hypertension Endocrine/Metabolic: Thyroid Disease Comments: achlasia, hyperlipidemia, ovarian CA Previous Surgical History: TAHBSO, Heller Myotomy - Allergies Allergies: Allergies ORANGE Allergy (Intermediate, Verified 04/11/18 08:22) RASH pear Allergy (Intermediate, Verified 04/11/18 08:22) RASH strawberry Allergy (Intermediate, Verified 04/11/18 08:22) RASH APPLE Allergy (Severe, Uncoded 04/11/18 08:22) SWELLING fruit Allergy (Severe, Uncoded 04/11/18 08:22) SWELLING - Current Medications Current Medications: reviewed, per reconciliation - Physical Exam General Appearance: wdwn nad Vital Signs: Vital Signs 04/18/18 08:30 Temperature 97.6 F Pulse Rate 65 Respiratory 19 Rate Blood Pressure 155/99 H O2 Sat by Pulse 98 Oximetry Mental Status: Alert & Oriented x3 Heart: WNL Lungs: WNL GI: WNL - {Optional Preform as Required} Abdomen: WNL - Impression Impression: anemia Pt. Evaluated Today:Candidate for Anesthesia & Procedure: Yes - Date & Time Date: 04/18/18 Time: 11:15 Short Stay Discharge - Short Stay Discharge Admitting Diagnosis/Reason for Visit: ANEMIA Disposition: HOME/ ROUTINE
[2018-04-18] MEDS ORDERED: Midazolam 2 MG/2 ML VIAL ONE (11:24)
[2018-04-18 12:19] VITALS: BP 136/74
== END 2018-04-18 12:37 | disposition home or self-care (01) ==
LOC: C.ENDO 07:45
PROVIDERS: ATTEND Internal Medicine Gastroenterology
DX: D64.9 Anemia, unspecified (principal); D50.9 Iron deficiency anemia, unspecified; K64.8 Other hemorrhoids
CPT/HCPCS: 45378; J2001; J2250; J2704; J7120

== ENCOUNTER 2018-07-09 09:08 | Emergency (ER) | payer MEDICAID, OTHER ==
[2018-07-09 09:12] VITALS: BMI 34.3
[2018-07-09 09:15] VITALS: BP 179/115; PULSE 76; RESP 18; TEMP 98.3; O2SAT 97
[2018-07-09] MEDS ORDERED: Naproxen 550 mg Tab PO STA (09:32)
--- NOTE | 2018-07-09 09:34 | C.PDOC ---
History Of Present Illness 53 yo female, presetns for eval. c/o of left knee pain x 2 months. attributes symptoms to knee hitting seat buckle in her car. no other known trauma. ambulated into er in nad. no fevers. did not see any other doctor. Time Seen by Provider: 07/09/18 09:29 Chief Complaint (Nursing): Lower Extremity Problem/Injury Past Medical History Reviewed: Historical Data, Nursing Documentation, Vital Signs Vital Signs: Last Vital Signs Temp 98.3 F 07/09/18 09:12 Pulse 76 07/09/18 09:12 Resp 18 07/09/18 09:12 BP 179/115 H 07/09/18 09:12 Pulse Ox 97 07/09/18 09:12 - Medical History PMH: Anemia, Anxiety, Gastritis, Gall Bladder Disease, HTN, Hypercholesterolemia, Hyperlipidemia, Hypothyroidism, Kidney Stones, Malignancy (ovarian), Chronic Kidney Disease, Seizures (NOT SURE, 18 YEARS AGO) Denies: Asthma, Bronchitis, Colonic Polyps, COPD, Crohn's Disease, Diverticulitis, Emphysema, Fractures, HIV, Pancreatitis, Sleep Apnea Surgical History: Cholecystectomy, Endoscopy (ESOPHAGEAL DILATION), - [facility] Procedures COLONOSCOPY (11/25/13) CONTROL BLEEDING IN GASTROINTESTINAL TRACT, ENDO (11/19/17) ESOPHAGEAL DILATION (06/04/14) ESOPHAGOGASTRODUODENOSCOPY [EGD] W/CLOSED BIOPSY (06/04/14) TRANSFUSE NONAUT RED BLOOD CELLS IN PERIPH VEIN, PERC (11/19/17) Family History: States: Diabetes - Social History Hx Tobacco Use: No Hx Alcohol Use: No Hx Substance Use: No - Immunization History Hx Tetanus Toxoid Vaccination: No Hx Influenza Vaccination: No Hx Pneumococcal Vaccination: No Review Of Systems Except As Marked, All Systems Reviewed And Found Negative. Musculoskeletal: Positive for: Leg Pain ((+)left knee pain) Physical Exam - Physical Exam Appears: Well, No Acute Distress Skin: Normal Color, Warm, Dry Eye(s): bilateral: Normal Inspection, PERRL, EOMI Nose: Normal Throat: Normal Neck: Normal Cardiovascular: Rhythm Regular Respiratory: Normal Breath Sounds Gastrointestinal/Abdominal: Normal Exam Back: Normal Inspection Extremity: Normal ROM, Tenderness ((+)left knee mild (-)anterior posterior drawer sign (-)compression distraction testing) ED Course And Treatment O2 Sat by Pulse Oximetry: 97 Medical Decision Making Medical Decision Making: naprox held as h/ o of gi bleed xr neg as read by me stable for dc Disposition - Disposition Referrals: [facility] [Outside] [facility] [Outside] [facility] [place] [Outside] Disposition: HOME/ ROUTINE Disposition Time: 10:00 Condition: STABLE Additional Instructions: please see specialist. return to any er with worsening symptoms or concerns. Prescriptions: Naproxen 500 mg PO BID PRN #14 tab PRN Reason: Pain, Mild (1-3) Instructions: Knee Sprain (DC), Ligament Injuries in the Knee Forms: [employer] (Australian) - Clinical Impression Clinical Impression: Knee sprain
[2018-07-09] MEDS ORDERED: Naproxen 550 mg Tab PO ONE (09:41)
--- NOTE | 2018-07-09 13:24 | RAD ---
Date of service: 07/09/2018 PROCEDURE: Left Knee Radiographs. HISTORY: Pain. COMPARISON: None. FINDINGS: BONES: Bone alignment and mineralization are normal. There is no acute displaced fracture or bone destruction. JOINTS: Normal. No osteoarthritis. JOINT EFFUSION: None. OTHER FINDINGS: None. IMPRESSION: No acute displaced fracture or dislocation.
== END 2018-07-09 10:07 | disposition home or self-care (01) ==
LOC: C.ER 09:08
DX: S83.92XA Sprain of unspecified site of left knee, initial encounter (principal); W22.8XXA Striking against or struck by other objects, initial encounter; Y92.810 Car as the place of occurrence of the external cause

== ENCOUNTER 2018-08-01 13:53 | Emergency (ER) | payer SELFPAY ==
[2018-08-01 13:54] VITALS: BMI 34.3
[2018-08-01 14:00] VITALS: BP 154/94; PULSE 88; TEMP 97.6; O2SAT 97
--- NOTE | 2018-08-01 14:29 | C.PDOC ---
History Of Present Illness 53 y/o female presents to the ED requesting MRI of the left knee for chronic pain for 2 months. Patient was evaluated on 07/09 for the same but never followed up with PMD or orthopedist. He reports history of prior trauma but no new injury. Pain is over the front of the left knee, and worsens with weight bearing and going down stairs. Associated with some swelling. Patient tried taking 400mg Motrin with moderate improvement. Time Seen by Provider: 08/01/18 14:06 Chief Complaint (Nursing): Lower Extremity Problem/Injury History Per: Patient History/Exam Limitations: no limitations Onset/Duration Of Symptoms: Days Current Symptoms Are (Timing): Still Present Past Medical History Reviewed: Historical Data, Nursing Documentation, Vital Signs Vital Signs: Last Vital Signs Temp 97.6 F 08/01/18 13:57 Pulse 88 08/01/18 13:57 Resp 18 08/01/18 13:57 BP 154/94 H 08/01/18 13:57 Pulse Ox 97 08/01/18 13:57 - Medical History PMH: Anemia, Anxiety, Gastritis, Gall Bladder Disease, HTN, Hypercholesterolemia, Hyperlipidemia, Hypothyroidism, Kidney Stones, Malignancy (ovarian), Chronic Kidney Disease, Seizures (NOT SURE, 18 YEARS AGO) Denies: Asthma, Bronchitis, Colonic Polyps, COPD, Crohn's Disease, Diverticulitis, Emphysema, Fractures, HIV, Pancreatitis, Sleep Apnea Surgical History: Cholecystectomy, Endoscopy (ESOPHAGEAL DILATION), - [facility] Procedures COLONOSCOPY (11/25/13) CONTROL BLEEDING IN GASTROINTESTINAL TRACT, ENDO (11/19/17) ESOPHAGEAL DILATION (06/04/14) ESOPHAGOGASTRODUODENOSCOPY [EGD] W/CLOSED BIOPSY (06/04/14) TRANSFUSE NONAUT RED BLOOD CELLS IN PERIPH VEIN, PERC (11/19/17) Family History: States: Diabetes - Social History Hx Tobacco Use: No Hx Alcohol Use: No Hx Substance Use: No - Immunization History Hx Tetanus Toxoid Vaccination: No Hx Influenza Vaccination: No Hx Pneumococcal Vaccination: No Review Of Systems Constitutional: Negative for: Fever, Chills Gastrointestinal: Negative for: Nausea, Vomiting Musculoskeletal: Positive for: Leg Pain (left knee) Skin: Negative for: Rash, Lesions Neurological: Negative for: Weakness, Numbness Physical Exam - Physical Exam Appears: Non-toxic, No Acute Distress Skin: Warm, Dry, No Rash Head: Atraumatic, Normacephalic Eye(s): bilateral: Normal Inspection Oral Mucosa: Moist Neck: Normal ROM Chest: Symmetrical Respiratory: No Accessory Muscle Use, Other (NARD) Extremity: Normal ROM (w/ full ROM of the left knee, +reproducible pain with full extension), No Deformity, Swelling (Moderate effusion to the left knee), Other (No gross laxity) Pulses: Left Dorsalis Pedis: Normal, Right Dorsalis Pedis: Normal Neurological/Psych: Oriented x3, Normal Speech ED Course And Treatment O2 Sat by Pulse Oximetry: 97 (RA) Pulse Ox Interpretation: Normal Medical Decision Making Medical Decision Making: Patient advised of the need for specialist evaluation, referral given. Disposition Counseled Patient/Family Regarding: Diagnosis, Need For Followup - Disposition Referrals: [facility] [Outside] [facility] [Outside] Mayank Jean III, MD [Staff Provider] - Disposition: HOME/ ROUTINE Disposition Time: 14:29 Condition: GOOD Instructions: Chronic Knee Pain (DC) Forms: [employer] (Icelandic) - Clinical Impression Clinical Impression: Chronic knee pain, Knee effusion - Scribe Statement The provider has reviewed the documentation as recorded by the Luis Angel Pedroza Provider Attestation: All medical record entries made by the Ingaibe were at my direction and personally dictated by me. I have reviewed the chart and agree that the record accurately reflects my personal performance of the history, physical exam, medical decision making, and the department course for this patient. I have also personally directed, reviewed, and agree with the discharge instructions and disposition.
[2018-08-01 14:56] VITALS: RESP 20
--- NOTE | 2018-08-01 18:18 | CP.PCM.CON ---
History of Present Illness - History of Present Illness History of Present Illness: Podiatry Consult Note for Dr. Lawrence 53F with PMH Anemia, Anxiety, Gastritis, Gall Bladder Disease, HTN, Hypercholesterolemia, Hyperlipidemia, Hypothyroidism, Kidney Stones, Malignancy (ovarian), Chronic Kidney Disease, Seizures (NOT SURE, 18 YEARS AGO) seen in ED for right second digit necrosis and pain. Patient states that over the last several weeks the toe has become cold and increasingly black. She also states that she has a history of toe amputations but does not recall the name of the doctor who amputated her digits. She also states that she has had multiple vascular procedures done by Dr. Valenzuela but can not relate when she saw him last. She is AAO x 3 and NAD at time of visit. Denies any further pedal complaints. Denies any recent N/V/F/C/CP/SOB/D Meds: See MAR All: Hood, pear, strawberry, apple PSH: Cholecystectomy, Endoscopy (ESOPHAGEAL DILATION), SH: Denies tobacco, drug or alcohol use Review of Systems - Review of Systems All systems: reviewed and no additional remarkable complaints except Review of Systems: as per HPI Past Patient History - Infectious Disease Hx of Infectious Diseases: None - Past Medical History & Family History Past Medical History?: Yes - Past Social History Smoking Status: Never Smoked - CARDIAC Hx Hypercholesterolemia: Yes Hx Hypertension: Yes - PULMONARY Hx Asthma: No Hx Bronchitis: No Hx Chronic Obstructive Pulmonary Disease (COPD): No Hx Emphysema: No Hx Sleep Apnea: No - NEUROLOGICAL Hx Seizures: Yes (NOT SURE, 18 YEARS AGO) - HEENT Hx HEENT Problems: No - RENAL Hx Chronic Kidney Disease: Yes Hx Kidney Stones: Yes - ENDOCRINE/METABOLIC Hx Hypothyroidism: Yes - HEMATOLOGICAL/ONCOLOGICAL Hx Anemia: Yes Hx Human Immunodeficiency Virus (HIV): No - INTEGUMENTARY Hx Dermatological Problems: No - MUSCULOSKELETAL/RHEUMATOLOGICAL Hx Fractures: No - GASTROINTESTINAL Hx Crohn's Disease: No Hx Diverticulitis: No Hx Gall Bladder Disease: Yes Hx Gastritis: Yes Hx Pancreatitis: No - GENITOURINARY/GYNECOLOGICAL Hx Genitourinary Disorders: Yes Hx Ovarian Cancer: Yes (WITH ROXANA AT 23 YRS. AGE) - PSYCHIATRIC Hx Anxiety: Yes Hx Substance Use: No - SURGICAL HISTORY Hx Cholecystectomy: Yes - ANESTHESIA Hx Anesthesia: Yes Hx Anesthesia Reactions: No Hx Malignant Hyperthermia: No Meds Allergies/Adverse Reactions: Allergies Allergy/AdvReac Type Severity Reaction Status Date / Time ORANGE Allergy Intermediate RASH Verified 07/09/18 09:12 pear Allergy Intermediate RASH Verified 07/09/18 09:12 strawberry Allergy Intermediate RASH Verified 07/09/18 09:12 APPLE Allergy Severe SWELLING Uncoded 07/09/18 09:12 fruit Allergy Severe SWELLING Uncoded 07/09/18 09:12 Physical Exam - Constitutional Appears: Well, Non-toxic, No Acute Distress - Extremities Exam Additional comments: LE focused exam: Vasc: DP/PT pulses non-palpable b/l. CFT < 3 seconds to right third and fourth digit and left digits 1-4. Skin temperature warm to warm from proximal to distal WNL except at right second digit which is cold to touch at this time. No edema noted Neuro: Epicritic and protective sensation grossly intact except at right second digit Derm: Stable, dry gangrenous changes noted to right second digit. Lysed blister noted to right posterior heel with minimal drainage, no malodor, no purulence, no fluctuance, no tracking, tunneling, undermining or other clinical signs of infection noted MSK: Well healed amputations noted to right first and fifth digits and left fifth digit. Minimal pain on palpation to right heel. No other gross deformities noted - Neurological Exam Neurological exam: Alert, Oriented x3 - Psychiatric Exam Psychiatric exam: Normal Affect, Normal Mood Results - Vital Signs Recent Vital Signs: Last Vital Signs Temp 97.6 F 08/01/18 13:57 Pulse 88 08/01/18 13:57 Resp 20 08/01/18 14:55 BP 154/94 H 08/01/18 13:57 Pulse Ox 97 08/01/18 14:57 Assessment & Plan - Assessment and Plan (Free Text) Assessment: 53F seen in ED for stable, dry gangrene to right second digit and lysed blister to right heel Plan: Patient seen and evaluated Plan discussed with Dr. Lawrence Right foot dressed with ABD, DSD to heel and DSD to forefoot Patient instructed to follow up with Dr. Valenzuela for vascular evaluation and with Dr. Lawrence for continued podiatric care - Date & Time Date: 08/01/18 Time: 18:24
== END 2018-08-01 14:55 | disposition home or self-care (01) ==
LOC: C.ER 13:53
DX: M25.462 Effusion, left knee (principal); E78.00 Pure hypercholesterolemia, unspecified; E03.9 Hypothyroidism, unspecified; I12.9 Hypertensive chronic kidney disease with stage 1 through stage 4 chronic kidney disease, or unspecified chronic kidney disease; N18.9 Chronic kidney disease, unspecified; R56.9 Unspecified convulsions